=== PATIENT | female | born 1960 | race Caucasian/White ===

== ENCOUNTER → 2019-11-12 14:56 | Outpatient (CLI) | payer OTHER, SELFPAY ==
--- NOTE | ~2019-11-12 | MM_ITS ---
EXAMINATION: MM screening naeem BI w lakisha HISTORY: Screening mammogram TECHNIQUE: Craniocaudal and mediolateral oblique 3-D tomosynthesis images were obtained and synthetic 2-D images were generated. CAD analysis was submitted and interpreted. COMPARISON: 07/11/2018, 07/08/2016, 03/27/2014 bilateral digital screening mammogram examinations BREAST PARENCHYMAL COMPOSITION: There are scattered areas of fibroglandular density. FINDINGS: Asymmetric approximately 3 mm mass situated posteriorly in the lower mid right breast; diag nostic right mammogram is recommended, with targeted ultrasound. Otherwise there is no evidence of suspicious mass, calcification, or architectural distortion to sug gest malignancy in either breast. There has been no other suspicious interval change. IMPRESSION: 1. 3 mm posterior lower mid right breast mass 2. Diagnostic right mammogram and targeted right breast ultrasound examination are recommended. BI-RADS Category 0: Incomplete: Needs additional imaging evaluation. Reviewed, dictated and finalized at location A.
== END ==
PROVIDERS: PCP Family Medicine; Visit Provider Physician Assistant
DX: Z12.31 Encounter for screening mammogram for malignant neoplasm of breast (principal); R92.8 Other abnormal and inconclusive findings on diagnostic imaging of breast
CPT/HCPCS: 77063; 77067

== ENCOUNTER → 2019-12-04 14:17 | Outpatient (CLI) | payer OTHER, SELFPAY ==
--- NOTE | ~2019-12-04 | MMUS_ITS ---
EXAMINATION: MM diagnostic mammo unilat RT, US breast RT limited HISTORY: Right breast asymmetry on screening mammogram TECHNIQUE: Additional 3-D tomosynthesis images of the right breast were performed and synthetic 2-D i mages were generated. CAD analysis was submitted and interpreted. High resolution limited right breas t ultrasound was performed. COMPARISON: 11/22/2019, 07/11/2018 FINDINGS: MAMMOGRAPHIC FINDINGS: There is a persistent asymmetry in the posterior third of the breast on the craniocaudal view which h as an appearance similar to prior mammograms with spot compression, consistent with a benign finding. No suspicious interval change is identified. ULTRASOUND: There is no evidence of focal abnormal solid or cystic lesion in the vicinity of the mammographic fin ding in question. IMPRESSION: 1. No mammographic evidence of malignancy. 2. Recommend routine screening mammography in one year. BI-RADS Category 2: Benign finding(s). Reviewed, dictated and finalized at location A. IMPRESSION: 1. No mammographic evidence of malignancy. 2. Recommend routine screening mammography in one year. BI-RADS Category 2: Benign finding(s).
== END ==
PROVIDERS: Visit Provider Physician Assistant
DX: R92.8 Other abnormal and inconclusive findings on diagnostic imaging of breast (principal)
CPT/HCPCS: 76642; 77065

== ENCOUNTER → 2020-10-31 00:36 | Outpatient (CLI) | payer OTHER, SELFPAY ==
[2020-10-31 17:47] LABS: SARS-CoV-2 RNA PCR Negative
== END ==
PROVIDERS: PCP Family Medicine; Visit Provider Internal Medicine Gastroenterology
DX: Z01.812 Encounter for preprocedural laboratory examination (principal); Z20.822 Contact with and (suspected) exposure to COVID-19
CPT/HCPCS: C9803; U0003; U0005

== ENCOUNTER 2020-11-03 01:25 | Day surgery (SDC) | payer OTHER, SELFPAY ==
[2020-10-17 10:45] VITALS: BMI 23.1
[2020-11-03 06:27] VITALS: BP 117/70; PULSE 64; RESP 20; TEMP 36.8; O2SAT 99
[2020-11-03] MEDS: LACTATED RINGERS 1,000 ML 150 ML IV CONT (06:38)
--- NOTE | 2020-11-03 07:08 | PM.HPGS ---
History of Present Illness History of Present Illness Consent: Risks, benefits, and alternatives have been discussed and questions answered. Patient agrees to proceed with procedure. Chief complaint: neoplasm screening Narrative: Roya Lorenzo is a 60 year old female Here for colon cancer screening [facility] Past Medical History Medical History History of vaginal delivery (~1981) History of vaginal delivery (~1983) History of vaginal delivery (~1987) History of vaginal delivery (~1992) History of vaginal delivery (~1994) Prolapse of vaginal wall Surgical History Surgical History H/O arthroscopy of shoulder H/O foot surgery H/O: hysterectomy History of appendectomy (~1994) Family History Family History Other Family history of gout Family history of mental disorder Hypertension Social History Social History Smoking packs per day: 0.5 Smoking cigarettes per day: 10.0 Years smoked: 40 Smoking pack-years: 20.00 Smoking status: Current every day smoker Tobacco type: cigarettes Second hand tobacco smoke exposure: Yes Smoking end date: 09/21/19 Alcohol intake: current Drinks per week: 7 Substance use: current Substance use type: does not use Living arrangements: with family Gender identity (if verbalized by the patient): Female Spiritual care concerns: No Meds Home Medications and Allergies Home Medications Medication Instructions Recorded Confirmed Type calcium carb,cit ER 600 mg 2 tablet PO DAILY 09/29/20 10/17/20 History calcium-vit D3 500 unit tablet,ext.release Allergies Allergy/AdvReac Type Severity Reaction Status Date / Time codeine Allergy Unknown Rash Verified 11/03/20 06:25 Penicillins Allergy Unknown Swelling Verified 11/03/20 06:25 Vital Signs Vital Signs - 24 hr 11/03/20 06:27 Temperature 36.8 C Pulse Rate 64 Respiratory Rate 20 Blood Pressure 117/70 Pulse Oximetry 99 Exam Resp: Auscultation: clear to auscultation bilaterally Cardio: Rate: regular rate Rhythm: regular rhythm GI: GI Palp: Yes Soft to palpation and No Tenderness to palpation present (GI) Assessment and Plan Assessment and plan (1) Colon cancer screening: Code(s): Z12.11 - Encounter for screening for malignant neoplasm of colon Status: Acute Assessment and Plan: Colonoscopy with possible biopsy or polypectomy or cautery or injection of substances.
--- NOTE | 2020-11-03 07:09 | WPDANESEPPF ---
Anes - Initial Pre Proc Eval Procedure: Operation Date: 11/03/20 07:30 Proposed Procedures p Screening Colonoscopy - Lenny Lee MD Date/Time: 11/03/20 07:09 Surgeon: Lenny Lee MD Pre Op Diagnosis: neoplasm screening Patient Data Age: 60 Gender: F Height: 5 ft 6 in Weight: 65.7 kg Last Vital Signs Temp 98.2 F 11/03/20 06:27 Pulse 64 11/03/20 06:27 Resp 20 11/03/20 06:27 BP 117/70 11/03/20 06:27 Pulse Ox 99 11/03/20 06:27 Allergies Allergy/AdvReac Type Severity Reaction Status Date / Time codeine Allergy Unknown Rash Verified 11/03/20 06:25 Penicillins Allergy Unknown Swelling Verified 11/03/20 06:25 Home Medications Medication Instructions Recorded Confirmed Type calcium carb,cit ER 600 mg 2 tablet PO DAILY 09/29/20 10/17/20 History calcium-vit D3 500 unit tablet,ext.release Patient hx anesthesia problems: none Family hx anesthesia problems: none PMFSH Past Medical History Medical History History of vaginal delivery (~1981) History of vaginal delivery (~1983) History of vaginal delivery (~1987) History of vaginal delivery (~1992) History of vaginal delivery (~1994) Prolapse of vaginal wall Surgical History Surgical History H/O arthroscopy of shoulder H/O foot surgery H/O: hysterectomy History of appendectomy (~1994) Family History Family History Other Family history of gout Family history of mental disorder Hypertension Social History Social History Smoking packs per day: 0.5 Smoking cigarettes per day: 10.0 Years smoked: 40 Smoking pack-years: 20.00 Smoking status: Current every day smoker Tobacco type: cigarettes Second hand tobacco smoke exposure: Yes Smoking end date: 09/21/19 Alcohol intake: current Drinks per week: 7 Substance use: current Substance use type: does not use Living arrangements: with family Gender identity (if verbalized by the patient): Female Spiritual care concerns: No Anes - Eval Final PreProcedure Day of Procedure 11/03/20 07:09 Patient weight: normal Heart: regular rate and rhythm Lungs: clear to auscultation Airway: Mallampati scale class II Neurological: alert and oriented Last oral intake: >/= 8 hours ASA classification: II Emergent: no Anesthetic plan: proceed Anesthesia type and monitoring: general GIVS and standard monitoring Informed Consent: The patient's anesthetic plan and its attendant risks and benefits were discussed with the patient/family/POA. Questions were solicited and answers provided to the satisfaction of the patient/family/POA.
[2020-11-03 07:54] VITALS: BP 98/58; PULSE 58; RESP 20; O2SAT 98
[2020-11-03 08:14] VITALS: BP 102/67; PULSE 54; RESP 17; O2SAT 100
[2020-11-03 08:24] VITALS: BP 109/73; PULSE 59; RESP 19; O2SAT 99
== END 2020-11-03 08:35 | disposition home or self-care (01) ==
PROVIDERS: PCP Family Medicine; Visit Provider Internal Medicine Gastroenterology
PROC: 0DJD8ZZ Inspection of Lower Intestinal Tract, Via Natural or Artificial Opening Endoscopic (ICD-10-PCS; CPT 45378; principal; 2020-11-03 07:30)
DX: Z12.11 Encounter for screening for malignant neoplasm of colon (principal); K57.30 Diverticulosis of large intestine without perforation or abscess without bleeding; K62.1 Rectal polyp; K64.8 Other hemorrhoids; Z87.891 Personal history of nicotine dependence
CPT/HCPCS: 45380; 88305; C9803; J2001; J2704; J7120; U0003; U0005

== ENCOUNTER → 2021-10-24 09:43 | Outpatient (CLI) | payer OTHER, SELFPAY ==
--- NOTE | ~2021-10-24 | MM_ITS ---
EXAMINATION: MM screening naeem BI w lakisha HISTORY: Screening mammogram TECHNIQUE: Craniocaudal and mediolateral oblique 3-D tomosynthesis images were obtained and synthetic 2-D images were generated. CAD analysis was submitted and interpreted. COMPARISON: 12/04/2019 diagnostic right mammogram and limited right breast ultrasound 11/12/2019, 07/11/2018 bilateral screening mammogram examinations BREAST PARENCHYMAL COMPOSITION: There are scattered areas of fibroglandular density. FINDINGS: There is no evidence of suspicious mass, calcification, or architectural distortion to sugg est malignancy in either breast. There has been no suspicious interval change. IMPRESSION: 1. No mammographic evidence of malignancy. 2. Recommend routine screening mammography in one year. BI-RADS Category 1: Negative Reviewed, dictated and finalized at location A. [employer] SALES CONSULTANT
--- NOTE | ~2021-10-24 | DEXA_ITS ---
Bone Density Report Name: BENJI CHOWDARY Age: 61 Sex: Female Ethnicity: White Date of : 1960 Indication: osteopenia; hysterectomy; postmenopausal Referring Provider: Shante, Whit Jordan Study: Bone densitometry was performed. Exam Date: October 24, 2021 Accession number: [id number] Bone Density: Region BMD T-score Z-score Classification AP Spine (L1-L4) 0.917 -1.2 0.4 Osteopenia Femoral Neck (Left) 0.553 -2.7 -1.3 Osteoporosis Total Hip (Left) 0.721 -1.8 -0.7 Osteopenia Femoral Neck (Right) 0.546 -2.7 -1.4 Osteoporosis Total Hip (Right) 0.756 -1.5 -0.5 Osteopenia Total Hip Mean 0.739 -1.7 -0.6 Osteopenia World Health Organization criteria for BMD impression classify patients as: Normal (T-score at or above -1.0), Osteopenia (T-score between -1.0 and -2.5), or Osteoporosis (T-score at or below -2.5). 10-year Fracture Risk: FRAX not reported because: Some T-score for Spine Total or Hip Total or Femoral Neck at or below -2.5 Previous Exams: Region Exam Age BMD T-score BMD Change BMD Change Date g/cm2 vs Baseline vs Previous AP Spine(L1-L4) 10/24/2021 61 0.917 -1.2 -0.162* -0.046* 07/11/2018 57 0.964 -0.8 -0.116* -0.018 07/08/2016 55 0.982 -0.6 -0.098* -0.098* 03/25/2010 49 1.079 0.3 Total Hip(Left) 10/24/2021 61 0.721 -1.8 -0.140* -0.080* 07/11/2018 57 0.801 -1.2 -0.060* -0.022 07/08/2016 55 0.823 -1.0 -0.038* 0.003 03/27/2014 53 0.820 -1.0 -0.041* -0.041* 03/25/2010 49 0.861 -0.7 Total Hip(Right) 10/24/2021 61 0.756 -1.5 -0.014 0.055* 07/11/2018 57 0.701 -2.0 -0.070* -0.006 07/08/2016 55 0.707 -1.9 -0.064* -0.062* 03/27/2014 53 0.769 -1.4 -0.001 -0.001 03/25/2010 49 0.771 -1.4 *Denotes significance at 95% confidence level, LSC for AP Spine = 0.022 g/cm2, LSC for Total Hip = 0.027 g/cm2 Clinical Information Provided by Patient: Smokes Has used the following medications: Calcium Has the following medical conditions: Hysterectomy Patient maximum height was 66 Menopause Age: 49 Drinks caffeinated beverages Onset of menses at age 12 Number of children 5 Impression: The patient has osteoporosis, based on the Left Femoral Neck T-score. The patient has risk factors, including: smoking. The
== END ==
PROVIDERS: PCP Family Medicine; Visit Provider Nurse Practitioner Obstetrics & Gynecology
DX: Z12.31 Encounter for screening mammogram for malignant neoplasm of breast (principal); Z78.0 Asymptomatic menopausal state; M85.89 Other specified disorders of bone density and structure, multiple sites; M81.0 Age-related osteoporosis without current pathological fracture
CPT/HCPCS: 77063; 77067; 77080

== ENCOUNTER 2021-10-27 13:07 | Outpatient (CLI) | payer OTHER, SELFPAY ==
--- NOTE | ~2021-10-27 | XR_ITS ---
XR sacroiliac joints min 3V 10/27/2021 13:35 Indication: Lifting injury. Sacral coccygeal disorder. Procedure: 4 views of the sacroiliac joints Comparison: No prior studies for comparison. Findings: Sacroiliac joints are symmetric without significant degenerative change, erosion or ankylos is. Sacral foramen are symmetric. No fracture or traumatic malalignment. Mild degenerative changes of the hips and lower lumbar spine. Impression: 1: No acute abnormality of the sacroiliac joints. Reviewed, dictated and finalized at location B. S AND MARKETING COORDINATOR Impression: 1: No acute abnormality of the sacroiliac joints.
--- NOTE | ~2021-10-27 | XR_ITS ---
EXAMINATION: XR abdomen obstructive series DATE: 10/27/2021 13:34 INDICATION: Unspecified abdominal pain TECHNIQUE: Upright and supine views of the abdomen were obtained. COMPARISON: None. FINDINGS: There is no free intraperitoneal gas or evidence of bowel obstruction. The bowel gas patter n is nonspecific. Phleboliths are noted in the pelvis. There is mild osteoarthritis of the hips. The visualized lung bases are clear. IMPRESSION: 1. Nonobstructive bowel gas pattern. Reviewed, dictated and finalized at location F. OTIONS INTERN
== END 2021-10-27 13:08 | disposition home or self-care (01) ==
LOC: ANHIMG 13:12
PROVIDERS: PCP Family Medicine; Visit Provider Family Medicine
DX: M53.3 Sacrococcygeal disorders, not elsewhere classified (principal); R10.9 Unspecified abdominal pain; M16.0 Bilateral primary osteoarthritis of hip
CPT/HCPCS: 72202; 74019

== ENCOUNTER 2022-07-12 15:25 | Day surgery (SDC) | payer OTHER, SELFPAY ==
[2022-07-12] VITALS (7 sets, daily range): BP systolic 116–133; BP diastolic 64–87; PULSE 59–88; RESP 16–18; TEMP 36.6–36.8; O2SAT 99–100; BMI 25.6
--- NOTE | 2022-07-12 15:54 | WPDHPUPDATE1 ---
History and Physical Update Update Date/Time: 07/12/22 15:54 History and Physical has been reviewed, including an updated exam of the patient. There are NO changes in the patient's condition. Risks, benefits, and alternatives have been discussed and questions answered. Patient agrees to proceed with procedure.
--- NOTE | 2022-07-12 15:56 | WPDANESEPPF ---
Anes - Initial Pre Proc Eval Procedure: Operation Date: 07/12/22 16:00 Proposed Procedures p Debridement or Excision Infected Right Axillary Cyst - Ruy Sorenson MD Date/Time: 07/12/22 15:56 Surgeon: Ruy Sorenson MD Pre Op Diagnosis: infected Right axillary cyst Patient Data Age: 61 Gender: F Height: 1.63 m Weight: 67.8 kg Allergies Allergy/AdvReac Type Severity Reaction Status Date / Time codeine Allergy Unknown Rash Verified 07/12/22 15:45 Penicillins Allergy Unknown Swelling Verified 07/12/22 15:45 Home Medications Medication Instructions Recorded Confirmed Type calcium carb,cit ER 600 mg-vit D3 2 tablet PO DAILY 09/29/20 07/09/22 History 12.5 mcg (500 unit) tablet,ext.rel doxycycline hyclate 100 mg capsule 100 mg PO DAILY 07/12/22 History Patient hx anesthesia problems: none Family hx anesthesia problems: none Results Review: All pre-operative results and documents have been reviewed as part of the pre-operative evaluation. [facility] Past Medical History Medical History History of vaginal delivery (~1981) History of vaginal delivery (~1983) History of vaginal delivery (~1987) History of vaginal delivery (~1992) History of vaginal delivery (~1994) Prolapse of vaginal wall Smoker Surgical History Surgical History H/O arthroscopy of shoulder H/O foot surgery H/O: hysterectomy History of appendectomy (~1994) Family History Family History Other Family history of gout Family history of mental disorder Hypertension Social History Social History Smoking packs per day: 0.5 Smoking cigarettes per day: 10.0 Years smoked: 40 Smoking pack-years: 20.00 Smoking status: Smoker, status unknown Tobacco type: cigarettes Second hand tobacco smoke exposure: Yes Alcohol intake: current Drinks per week: 7 Alcohol use details: drinks wine and beer daily Substance use: current Substance use type: marijuana Other substance usage details: smokes marijuana & consumes edibles 2-3 times/week Has the Lack of Transportation Kept You From Medical Appointments or From Getting Medications?: No Within the Past 12 Months, Were You Worried Whether Your Food Would Run Out Before You Got Money to Buy More?: Never True What is Your Housing Situation Today?: I Have Housing Are You Worried That in the Next 2 Months, You May Not Have Your Own Housing to Live In?: No Do You Have Trouble Paying Your Heating Or Electricity Bill?: No Do You Have Trouble Paying For Medicines?: No Are You Currently Unemployed and Looking for Work?: No Highest Level of Education Completed: Trade/Vocational Certificate Do You Have Trouble With Childcare or the Care of a Family Member?: No Gender identity (if verbalized by the patient): Female Spiritual care concerns: No Anes - Eval Final PreProcedure Day of Procedure 07/12/22 15:56 Patient weight: normal Heart: regular rate and rhythm Lungs: clear to auscultation Airway: Mallampati scale class II Neurological: alert and oriented Last oral intake: 4 hours Emergent: yes Anesthetic plan: proceed Anesthesia type and monitoring: general ETT and standard monitoring Results Review: All pre-operative results and documents have been reviewed as part of the pre-operative evaluation. Informed Consent: The patient's anesthetic plan and its attendant risks and benefits were discussed with the patient/family/POA. Questions were solicited and answers provided to the satisfaction of the patient/family/POA.
[2022-07-12] MEDS: LACTATED RINGERS 1,000 ML 30 ML IV CONT (15:59)
[2022-07-12] MEDS: ceFAZolin 2 GM/D5W 50 ML 2 GM/50 ML BAG IVPB (16:05)
[2022-07-12] MEDS: BUPIVACAINE/EPINEPHRINE 0.25% 50 ML VIAL INFILTRATE (16:28)
--- NOTE | 2022-07-12 16:48 | W.PM.PROC2 ---
Procedure Note - Detailed Date of Procedure 07/12/22 Pre-op Diagnosis Right axillary cyst abscess Post-op Diagnosis Same Procedure Performed Incision and drainage right axillary cyst abscess complex Surgeon Ruy Sorenson MD [employer] Installer Junior VIEYRA Anesthesia General and Local (0.25% Marcaine with epinephrine) Indications Patient had an infection and abscess in her right axilla 15 or 16 years ago. After incision and drainage she has always had a small nodule in that location. Recently, within the last week, this started to swell reddened and become very painful. She started on antibiotics but this did not provide much relief. She was seen in the office today and found to have an abscessed skin cyst of the right axilla. She is taken to surgery now for incision and drainage versus excision. Findings Most of the cyst was an abscess. I drained the abscess and removed as much of the cyst as possible. Description of Procedure The patient was taken to surgery and induced into general anesthesia. The right axilla was prepped and draped. An incision down the length of the abscess was made. Some purulent fluid and some subcutaneous pockets of purulence were noted. I excised the subcutaneous pockets and some of the overlying skin. A removed all the infected material that I could find. Cautery was used for hemostasis. I then dressed the wound with Xeroform gauze, fluffs, and Medipore tape. Estimated Blood Loss -5.0 Drains No Packing No Pathology None sent Complications No immediate complications Condition Stable Disposition PACU [facility] Billing Surgery - Charge Forward: Surgery Billing (Complex incision and drainage of right axillary abscess)
== END 2022-07-12 18:02 | disposition home or self-care (01) ==
PROVIDERS: PCP Family Medicine; Visit Provider Surgery
PROC: (CPT 10060; principal; 2022-07-12 16:00)
DX: L02.818 Cutaneous abscess of other sites (principal); L72.9 Follicular cyst of the skin and subcutaneous tissue, unspecified; F17.210 Nicotine dependence, cigarettes, uncomplicated
CPT/HCPCS: 10060; J0330; J0690; J1100; J2250; J2405; J2704; J3010; J7120

== ENCOUNTER 2023-01-22 17:20 | Emergency (ER) | payer OTHER, SELFPAY ==
[2023-01-22 17:35] VITALS: BP 106/65; PULSE 65; RESP 12; TEMP 36.2; O2SAT 100
--- NOTE | 2023-01-22 18:06 | ED.SKABFB ---
HPI - Skin/Abscess/Foreign Bdy General Chief complaint: Skin/Abscess/Foreign Body Stated complaint: insect bite; right forearm swelling and itching Time Seen by Provider: 01/22/23 18:06 Source: patient Mode of arrival: ambulatory Limitations: no limitations History of Present Illness HPI narrative: 62-year-old female presents with complaint of pain, swelling and redness to right forearm. States yesterday while taking off pool cover she thinks that she was stung by something. She states that right forearm feels warm to touch. She has not taking any [id number] medications to treat her pain. she did not take any Benadryl after insect sting. All systems reviewed and negative except as noted above. Related Data Allergies Allergy/AdvReac Type Severity Reaction Status Date / Time codeine Allergy Unknown Rash Verified 01/22/23 17:48 Penicillins Allergy Unknown Swelling Verified 01/22/23 17:48 Review of Systems Review of Systems: CONSTITUTIONAL: Denies fever, chills, or sweats. EYES: Denies visual changes, redness, or discharge. ENT: Denies rhinorrhea, congestion, sore throat, or otalgia. CARDIOVASCULAR: Denies chest pain, palpitations, or edema. RESPIRATORY: Denies cough or dyspnea. GASTROINTESTINAL: Denies abdominal pain, nausea, vomiting, or diarrhea. GENITOURINARY: Denies dysuria or hematuria. SKIN: Denies rash or itching. Reports swelling, redness and warmth to lateral aspect right forearm. MUSCULOSKELETAL: Denies back pain, joint pain, or myalgia. NEUROLOGIC: Denies headache, numbness, or weakness. PSYCHIATRIC: Denies anxiety or depression. All other systems reviewed are negative, except as documented in HPI. [facility] Past Medical History Medical History (Updated 01/22/23 @ 18:14 by Sonia Rubi NP) Foraminal stenosis of lumbar region History of vaginal delivery (~1981) History of vaginal delivery (~1983) History of vaginal delivery (~1987) History of vaginal delivery (~1992) History of vaginal delivery (~1994) Prolapse of vaginal wall Smoker Spinal stenosis of lumbar region Surgical History Surgical History H/O arthroscopy of shoulder H/O foot surgery H/O: hysterectomy History of appendectomy (~1994) Hx of excision of epidermal inclusion cyst debridement or exc infected R axillary cyst 07/12/22 Family History Family History Other Family history of gout Family history of mental disorder Hypertension Social History Social History Smoking packs per day: 0.5 Smoking cigarettes per day: 10.0 Years smoked: 40 Smoking pack-years: 20.00 Smoking status: Smoker, status unknown Tobacco type: cigarettes Second hand tobacco smoke exposure: Yes Alcohol intake: current Drinks per week: 7 Alcohol use details: drinks wine and beer daily Substance use: current Substance use type: marijuana Other substance usage details: smokes marijuana & consumes edibles 2-3 times/week Lack of Transportation: No Lack of Food: Never True Current Housing: I Have Housing Concerned About Future Housing: No Difficulty Paying Gas/Electric Bills: No Difficulty Paying for Meds: No Currently Unemployed: No Education: Trade/Vocational Certificate Difficulty w/ Childcare or Family Care: No Living arrangements: with family Occupation/Education: occupation Gender identity (if verbalized by the patient): Female Spiritual care concerns: No Comments At time of signature, agree with nursing past medical, surgical, social and family history. There is no relevant family history pertinent to the presenting complaint. Exam Narrative: GENERAL: This is a well-nourished, well-developed patient, in no apparent distress. HEAD: normocephalic, atraumatic. EYES: PERRL. Sclera clear/white. Vision is grossly i
== END 2023-01-22 18:16 | disposition home or self-care (01) ==
PROVIDERS: Emergency Provider Nurse Practitioner Family; PCP Family Medicine
DX: S50.861A Insect bite (nonvenomous) of right forearm, initial encounter (principal); W57.XXXA Bitten or stung by nonvenomous insect and other nonvenomous arthropods, initial encounter; F17.210 Nicotine dependence, cigarettes, uncomplicated; F12.90 Cannabis use, unspecified, uncomplicated; M48.061 Spinal stenosis, lumbar region without neurogenic claudication
CPT/HCPCS: 99213; G0463

== ENCOUNTER → 2023-03-15 11:22 | Outpatient (CLI) | payer OTHER, SELFPAY ==
--- NOTE | ~2023-03-15 | MM_ITS ---
EXAMINATION: MM screening naeem BI w lakisha HISTORY: Screening mammogram TECHNIQUE: Craniocaudal and mediolateral oblique 3-D tomosynthesis images were obtained and synthetic 2-D images were generated. CAD analysis was submitted and interpreted. COMPARISON: October 24, 2021 bilateral screening mammogram December 04, 2019 diagnostic right mammogram and limited right breast ultrasound November 12, 2019 bilateral screening mammogram BREAST PARENCHYMAL COMPOSITION: There are scattered areas of fibroglandular density. FINDINGS: There is no evidence of suspicious mass, calcification, or architectural distortion to sugg est malignancy in either breast. There has been no suspicious interval change. IMPRESSION: 1. No mammographic evidence of malignancy. 2. Recommend routine screening mammography in one year. BI-RADS Category 1: Negative Reviewed, dictated and finalized at location A.
== END ==
PROVIDERS: PCP Family Medicine; Visit Provider Nurse Practitioner Obstetrics & Gynecology
DX: Z12.31 Encounter for screening mammogram for malignant neoplasm of breast (principal)
CPT/HCPCS: 77063; 77067

== ENCOUNTER 2024-03-27 12:37 | Outpatient (CLI) | payer OTHER, SELFPAY ==
--- NOTE | ~2024-03-27 | DEXA_ITS ---
Bone Density Report Name: BENJI CHOWDARY Age: 63 Sex: Female Ethnicity: White Date of : 1960 Indication: postmenopausal; screening for osteoporosis; height loss; hysterectomy; Referring Provider: Shante, Whit Jordan Study: Bone densitometry was performed. Exam Date: March 27, 2024 Accession number: [id number] Bone Density: Region BMD T-score Z-score Classification AP Spine(L1, L2, L3) 0.883 -1.2 0.5 Osteopenia Femoral Neck (Left) 0.583 -2.4 -0.9 Osteopenia Total Hip (Left) 0.693 -2.0 -0.8 Osteopenia Femoral Neck (Right) 0.582 -2.4 -0.9 Osteopenia Total Hip (Right) 0.673 -2.2 -1.0 Osteopenia Femoral Neck Mean 0.583 -2.4 -0.9 Osteopenia Total Hip Mean 0.683 -2.1 -0.9 Osteopenia World Health Organization criteria for BMD impression classify patients as: Normal (T-score at or above -1.0), Osteopenia (T-score between -1.0 and -2.5), or Osteoporosis (T-score at or below -2.5). 10-year Fracture Risk(1): Major Osteoporotic Fracture 13% Hip Fracture 3.8% Reported Risk Factors: [place] (), Neck BMD=0.582, BMI=24.0, smoking (1) FRAX(R) Version 3.08. Fracture probability calculated for an untreated patient. Fracture probability may be lower if the patient has received treatment. Clinical Information Provided by Patient: Smokes Has the following medical conditions: Hysterectomy Patient maximum height was 66 Menopause Age: 49 No regular weight bearing exercise Drinks caffeinated beverages Onset of menses at age 12 Number of children 5 Impression: The patient has low bone mass, based on the Left Femoral Neck T-score. The patient has risk factors, including: smoking. Discussion: BONE DENSITY IS LOW AT ONE OR MORE SKELETAL SITES. This patient's lowest T-score is low at one or more skeletal sites. It meets the World Health Organization's (WHO) criteria for ?low bone mass? (T-score between -1.0 and -2.5). The patient's 10-year risk of fracture as calculated by FRAX is less than the threshold where pharmacological therapy is recommended by the National Osteoporosis Foundation (NOF). However, all treatment decisions require clinical judgment and consideration of individual patient factors, including patient preferences, comorbidities, previous drug use, risk factors not captured in the FRAX model (e.g., frailty, falls, vitamin D deficiency, increased bone turnover, interval significant decline in bone density) and possible under or overestimation of fracture risk by FRAX. The patient should follow a healthful lifestyle (good nutrition with adequate calcium and vitamin D, and appropriate weight-bearing exercise). Follow-Up: Consider repeating this study in 2 to 3 years to reassess this patient's status, or sooner if there is some new clinical indication. Reported by: Dr. Sander Sheikh on 03/27/2024 1:14:00 PM.
--- NOTE | ~2024-03-27 | MM_ITS ---
EXAMINATION: MM screening naeem BI w lakisha HISTORY: Screening TECHNIQUE: Craniocaudal and mediolateral oblique 3-D tomosynthesis images were obtained and synthetic 2-D images were generated. CAD analysis was submitted and interpreted. COMPARISON: Comparison to multiple prior studies sequentially, with oldest reviewed study dated 11/2015. BREAST PARENCHYMAL COMPOSITION: Not dense: There are scattered areas of fibroglandular density. FINDINGS: There is no evidence of suspicious mass, calcification, or architectural distortion to sugg est malignancy in either breast. There has been no suspicious interval change. IMPRESSION: 1. No mammographic evidence of malignancy. 2. Recommend routine screening mammography in one year. BI-RADS Category 1: Negative Reviewed, dictated and finalized at location B.
== END 2024-03-27 12:38 | disposition home or self-care (01) ==
PROVIDERS: PCP Family Medicine; Visit Provider Nurse Practitioner Obstetrics & Gynecology
DX: Z12.31 Encounter for screening mammogram for malignant neoplasm of breast (principal); Z78.0 Asymptomatic menopausal state; M85.89 Other specified disorders of bone density and structure, multiple sites
CPT/HCPCS: 77063; 77067; 77080

== ENCOUNTER 2024-06-18 09:37 | Outpatient (CLI) | payer OTHER, SELFPAY ==
--- NOTE | ~2024-06-18 | CT_ITS ---
CT Scan of the Chest without Contrast: Clinical Indication: Lung cancer screening, nicotine dependence Technique: Contiguous sections were acquired throughout the chest without intravenous contrast. Dose reduction technique was used on this scan by utilizing automated exposure control and iterative recon struction technique. The dose-length product (DLP) was 63.54 mGy-cm. Findings: There is no evidence of any significant mediastinal, hilar or axillary lymphadenopathy. Coronary maribel ry calcifications are present. There is no evidence of pleural or pericardial effusion. The lungs are clear. No pulmonary nodules or infiltrates are noted. Images through the upper abdomen reveal no abnormalities. Impression: Lung RADS 1: Negative. 12 month follow-up screening CT advised. Reviewed, dictated and finalized at location . Impression: Lung RADS 1: Negative. 12 month follow-up screening CT advised.
== END 2024-06-18 09:38 | disposition home or self-care (01) ==
LOC: MICIMG 09:38
PROVIDERS: PCP Family Medicine; Visit Provider Student in an Organized Health Care Education/Training Program
DX: Z12.2 Encounter for screening for malignant neoplasm of respiratory organs (principal); Z87.891 Personal history of nicotine dependence
CPT/HCPCS: 71271

== ENCOUNTER 2025-04-01 08:46 | Outpatient (CLI) | payer MEDICARE, SELFPAY ==
--- NOTE | ~2025-04-01 | XR_ITS ---
EXAM: XR shoulder RT min 2V DATE: 04/01/2025 09:11 HISTORY: NON TRAUMA R SHOULD PAIN/HX OF SURGERY . COMPARISON: None available. FINDINGS: Decreased mineralization. No fracture or dislocation. No lytic or blastic lesion. Mild AC joint and moderate glenohumeral joint degenerative change. Subacromial narrowing. Inferior enthesopat hy at the acromion, likely indicating a component of osseous outlet compromise. Soft tissue anchors i n the humeral head. No erosion or periosteal change. Soft tissues within normal limits. IMPRESSION: Osteopenia. Subacromial narrowing as can be seen with rotator cuff pathology. Mild AC charissa nt and moderate glenohumeral joint osteoarthritis. Surgical changes, likely of prior rotator cuff rep air. Reviewed, dictated and finalized at location K. IMPRESSION: Osteopenia. Subacromial narrowing as can be seen with rotator cuff pathology. Mild AC joint and moderate glenohumeral joint osteoarthritis. Surgic al changes, likely of prior rotator cuff repair.
--- OUTSIDE RECORDS SUMMARY | 2025-04-01 08:55 | XMS_ITS | Patient Health Record ---
Author Organization [facility] Address [address] [place], [place] [id number] Care Team Providers Care Anesthesiologist Attending Name Role Phone JABARI Vanegas Unavailable Charu Macias Unavailable Unavailable Reason For Referral No Information Plan Of Treatment No Information Insurance Providers Payer Name Payer Address Payer Phone Subscriber Number Group Number Insured Name Patient Relationship to Insured Coverage Start Date Coverage End Date CIGNA [address] [place]IV[place] GARC[place], [place] [phone] [id number] BENJI CHOWDARY Self - patient is the insured
--- OUTSIDE RECORDS SUMMARY | 2025-04-01 08:55 | XMS_ITS | Clinical Summary ---
Author Organization [facility] Address [address] [place] [address] Care Team Providers Care Bowling Floor Manager Name Role Phone Belen Goldberg NURSING HOME ASSISTANT ADMINISTRATOR Primary Care Provider Unavail able Allergies Active Allergy Reactions Criticality Noted Date Comments Codeine Rash Low 10/16/2021 Penicillins Rash Low 10/16/2021 Medications chlorzoxazone 500 MG Tab Take 1 tablet (500 mg total) by mouth 3 (three) times daily as needed (Pain and/or muscle spasm). 30 tablet 10/17/2021 Active diclofenac EC 75 MG tablet Take 1 tablet (75 mg total) by mouth 2 (two) times daily as needed (Pain. Please take with meals). 30 tablet 10/17/2021 Active Immunizations Immunization Administration Dates Next Due PFIZER COVID-19 (ORIGINAL FO RMULATION, PURPLE CAP) mRNA, LNP-S, PF, 30 MCG/0.3 ML DOSE 11/15/2020,10/25/2020 Social History Tobacco Use Types Packs/Day Years Used Date Smoking Tobacco: Every Day Cigarettes Smokeless Tobacco: Never Alcohol Use Standard Drinks/Week Comments Yes 8 (1 standard drink = 0.6 oz pur e alcohol) Comments No Sex and Gender Information Value Date Recorded Sex Assigned at Not on file Legal Sex Female 1:11 PM CAR MECHANIC Gender Identity Not on file Sexual Orientation Not on file Last Filed Vital Signs Vital Sign Reading Time Taken Comments Blood Pressure 131/81 10/17/2021 1:45 AM CAR MECHANIC Pulse 60 10/16/2021 9:15 PM CAR MECHANIC Temperature 36.7 C (98 F) 10/17/2021 1:45 AM CAR MECHANIC Respiratory Rate 18 10/17/2021 1:45 AM CAR MECHANIC Oxygen Saturation 97% 10/17/2021 1:45 AM CAR MECHANIC Inhaled Oxygen Concentration - - Weight 67 kg (147 lb 11.3 oz) 10/16/2021 5:39 PM CAR MECHANIC Height 162.6 cm (5' 4) 10/16/2021 5:39 PM CAR MECHANIC Body Mass Index 25.35 10/16/2021 5:39 PM CAR MECHANIC Plan of Treatment Health Maintenance Due Date Last Done Comments Colorectal Cancer Screening Colonoscopy (10 Years) 1960 Hepatitis C 1977 DTaP, Tdap and Td Vaccines ( 1 - Tdap) 1978 Pneumococcal Vaccine: 50+ Years (1 of 2 - PCV) 1978 Mammogram Screening 1999 Zoster Vaccines (1 of 2) 2009 COVID-19 Vaccine (3 - 2023-2 5 season) 2024 11/15/2020, 10/25/2020 Dexa Scan (General) 2024 RSV Immunization or 60+ Years (1 - 1-dose 75+ series) 2034 Meningococcal B Vaccine Aged Out No l onger eligible based on patient's age to complete this topic Meningococcal Vaccine Aged Out No daxa kaleb eligible based on patient's age to complete this topic RSV Immunizations Under 20 Months Aged Out No longer eligible b ased on patient's age to complete this topic Insurance [facility] [employer] [facility] Care Teams Bowling Floor Manager Relationship Specialty Start Date End Date Belen Goldberg NP PCP - General HR GENERALIST 10/16/21
== END 2025-04-01 08:47 | disposition home or self-care (01) ==
PROVIDERS: PCP Family Medicine; Visit Provider Student in an Organized Health Care Education/Training Program
DX: M85.821 Other specified disorders of bone density and structure, right upper arm (principal); M75.41 Impingement syndrome of right shoulder; M19.011 Primary osteoarthritis, right shoulder; Z98.890 Other specified postprocedural states
CPT/HCPCS: 73030

== ENCOUNTER 2025-04-06 09:26 | Outpatient (CLI) | payer MEDICARE, SELFPAY ==
--- NOTE | ~2025-04-06 | US_ITS ---
Limited Abdominal Sonogram: Real-time sonographic imaging of the right upper quadrant was performed. Clinical History: Gallstone Findings: The liver appears normal with no evidence of mass lesion or bile duct dilatation. Main por ko vein demonstrates normal direction of flow. The gallbladder is well distended, and is filled with shadowing stones. The common bile duct measures 5 mm. The visualized pancreas, aorta, and IVC are u nremarkable. Right kidney unremarkable. Impression: Cholelithiasis. Reviewed, dictated and finalized at location M. Impression: Cholelithiasis.
--- OUTSIDE RECORDS SUMMARY | 2025-04-06 09:30 | XMS_ITS | Patient Health Record ---
Author Organization [facility] Address [address] [place], [place] [id number] Care Team Providers Care Jet Man Name Role Phone JABARI Vanegas Unavailable Charu Macias Unavailable Unavailable Reason For Referral No Information Plan Of Treatment No Information Insurance Providers Payer Name Payer Address Payer Phone Subscriber Number Group Number Insured Name Patient Relationship to Insured Coverage Start Date Coverage End Date CIGNA [address] [place], [place] [phone] [id number] BENJI CHOWDARY Self - patient is the insured
== END 2025-04-06 09:27 | disposition home or self-care (01) ==
PROVIDERS: PCP Family Medicine; Visit Provider Student in an Organized Health Care Education/Training Program
DX: K80.20 Calculus of gallbladder without cholecystitis without obstruction (principal)
CPT/HCPCS: 76705

== ENCOUNTER 2025-05-23 12:31 | Outpatient (CLI) | payer MEDICARE, SELFPAY ==
--- NOTE | ~2025-05-23 | MM_ITS ---
EXAMINATION: MM screening naeem BI w lakisha HISTORY: Screening TECHNIQUE: Craniocaudal and mediolateral oblique 3-D tomosynthesis images were obtained and synthetic 2-D images were generated. CAD analysis was submitted and interpreted. COMPARISON: 03/27/2024 BREAST PARENCHYMAL COMPOSITION: Not Dense: The breasts are almost entirely fatty. FINDINGS: There is no evidence of suspicious mass, calcification, or architectural distortion to suggest malignancy in either breast. [There has been no significant interval change. IMPRESSION: 1. No mammographic evidence of malignancy. Recommend routine screening mammography in one year. BI-RADS Category 1: Negative Reviewed, dictated, and finalized at Location A. Reviewed, dictated and finalized at location Q. IMPRESSION: 1. No mammographic evidence of malignancy. Recommend routine screening mammogra phy in one year. BI-RADS Category 1: Negative
--- OUTSIDE RECORDS SUMMARY | 2025-05-23 12:34 | XMS_ITS | Clinical Summary ---
Author Organization [facility] Address [address] [place] [address] Care Team Providers Care Electric Meter Installer Name Role Phone Belen Goldberg DIRECTOR RECREATION Primary Care Provider Unavail able Allergies Active [...] on file Legal Sex Female 1:11 PM CABLE ENGINEER OUTSIDE PLANT Gender Identity Not on file Sexual Orientation Not on file Last Filed Vital Signs Vital Sign Reading Time Taken Comments Blood Pressure 131/81 10/17/2021 1:45 AM CABLE ENGINEER OUTSIDE PLANT Pulse 60 10/16/2021 9:15 PM CABLE ENGINEER OUTSIDE PLANT Temperature 36.7 C (98 F) 10/17/2021 1:45 AM CABLE ENGINEER OUTSIDE PLANT Respiratory Rate 18 10/17/2021 1:45 AM CABLE ENGINEER OUTSIDE PLANT Oxygen Saturation 97% 10/17/2021 1:45 AM CABLE ENGINEER OUTSIDE PLANT Inhaled Oxygen Concentration - - Weight 67 kg (147 lb 11.3 oz) 10/16/2021 5:39 PM CABLE ENGINEER OUTSIDE PLANT Height 162.6 cm (5' 4) 10/16/2021 5:39 PM CABLE ENGINEER OUTSIDE PLANT Body Mass Index 25.35 10/16/2021 5:39 PM CABLE ENGINEER OUTSIDE PLANT Plan of Treatment Health Maintenance Due Date Last Done Comments Colorectal Cancer Screening Colonoscopy (10 Years) 1960 Hepatitis C 1977 DTaP, Tdap and Td Vaccines ( 1 - Tdap) 1978 Pneumococcal Vaccine: 50+ Years (1 of 2 - PCV) 1978 Mammogram Screening 1999 Zoster Vaccines (1 of 2) 2009 Dexa Scan (General) 2024 COVID-19 Vaccine (3 - 2024-2 6 season) 2025 11/15/2020, 10/25/2020 RSV Immunization or 60+ Years (1 - [...] patient's age to complete this topic Insurance [facility] [employer] Care Teams Electric Meter Installer Relationship Specialty Start Date End Date Belen Goldberg NP PCP - General MANAGER STAFFING 10/16/21
--- OUTSIDE RECORDS SUMMARY | 2025-05-23 12:34 | XMS_ITS | Clinical Summary ---
Author Organization [facility] Address [address] [place] [address] Care Team Providers Care Antisqueak Worker Name Role Phone Charu Macias MD Primary Care Provider [phone] Source Comments [facility],non-owned Affiliates and Associated Physician Practices is amultiple site organization consisting of ambulatory clinics and hospital sitesin [place] and [place]. This disclosure is being madepursuant to the Care Everywhere program and may not contain all information available regarding this patient. Last updated 18.[facility] Allergies Active Allergy Reactions Criticality Noted Date Comments Codeine INSTRUCTIONAL WRITER Dysfunction 04/16/2025 Penicillins Rash Medium 04/16/2025 Medications * Be aware that medications may not be up to date on this document. Alwaysverify current medications with the patient. No known medications Encounters Date Type Department Care Team Description 04/16/2025 11:00 AM CDT Office Visit [facility] - Orthopedics [address] [place] [phone] Isaías Lan MD Rotator cuff tendinitis, right (Primary Dx) 04/16/2025 10:53 AM CDT - 04/16/2025 11:59 PM CDT Hospital Encounter [facility] [address] [place] [address] Isaías Lan MD Discharge Disposition: Home or Self Care 04/16/2025 Travel 04/15/2025 Orders Only [facility] [address] [place] [phone] Isaías Lan MD Right shoulder pain, unspecified chronicity 04/15/2025 Travel from Last 3 Months Social History Tobacco Use Types Packs/Day Years Used Date Smoking Tobacco: Former Cigarettes Q uit: 1979 Smokeless Tobacco: Never Tobacco Cessation:Counseling Given: Not Answered Comments Unknown Sex and Gender Information Value Date Recorded Sex Assigned at Not on file Legal Sex Female 4:53 PM CDT Gender Identity Not on file Sexual Orientation Not on file Plan of Treatment Health Maintenance Due Date Last Done Comments BONE DENSITY TESTING 1960 COLOGUARD (AGES 45-75) - COL ON CA SCREENING 1960 COLON MONITORING 1959 COLONOSCOPY - COLON CA SCREENING 1959 CT COLONOGRAPHY - COLON CA SCREENING 1960 Colorectal Cancer Screening 1960 FIT - COLON CA SCREENING 1959 FLEX SIG - COLON CA SCREENING 1960 LIPID TESTING 1960 MAMMOGRAM 1960 HIV SCREENING 1974 HEPATITIS C SCREENING 08/28/1977 DTAP/TDAP/TD VACCINES (1 - Tdap) 1978 PNEUMOCOCCAL VACCINE 50+ (1 of 1 - PCV) 2009 ZOSTER VACCINE (1 of 2) 2009 DEPRESSION SCREENING 09/05/2024 MEDICARE AWV CALENDAR YEAR 2024 COVID-19 VACCINE (3 - 2024-2 6 season) 2025 11/15/2020, 10/25/2020 INFLUENZA VACCINE (#1) 2025 PAP SMEAR 10/10/2027 10/10/2024, 10/10/2024 Respiratory Syncytial Virus (RSV) Vaccine Pt: or over 60 yrs (1 - 1-dose 75+ series) 2034 HEPATITIS B VACCINE Aged Out No longe r eligible based on patient's age to complete this topic HIB VACCINE Aged Out No longer eligi ble based on patient's age to complete this topic HPV VACCINE Aged Out No longer eligi ble based on patient's age to complete this topic MENINGOCOCCAL (Group B) VACCINE SHARED DECISION-MAKING Aged Out No longer eligible based on patient's age to complete this topic MENINGOCOCCAL GROUPS A/C/Y/W VACCINE Aged Out No longer eligible b ased on patient's age to complete this topic Procedures Procedure Name Priority Date/Time Associated Diagnosis Comments XR SHOULDER RIGHT 2VW OR MORE Routine 04/16/2025 11:10 AM CDT Right shoulder pain, unspecified chronicity from Last 3 Months Results * XR Shoulder Right 2Vw or More (04/16/2025 11:10 AM CDT) Anatomical Region Laterality Modality Upper Extremity Computed Radiogr aphy 04/16/2025 11:2 5 AM CDT Impressions 04/16/2025 11:47 AM CDT IMPRESSION: 1.Mild degenerative changes. The report was drafted by Danii Lakhani MD (residential interior designer) 04/16/2025 11:25 AM. > Dictated by Radio Television Announcer I, Gordo Diaz MD have personally reviewed and interpreted this examination/study. > Interpreting Provider: Gordo Diaz MD on 04/16/2025 11:47 AM Narrative 04/16/2025 11:47 AM CDT PROCEDURE: XR SHOULDER RIGHT 2VW OR MORE, DATE/TIME OF EXAM: 04/16/2025 11:10 AM, LOCATION [facility] INDICATION: M25.511: Right shoulder pain, unspecified chronicity ADDITIONAL CLINICAL INFORMATION: Ordering Provider Reason For Exam: fx COMPARISON: None. FINDINGS: There is no acute fracture or dislocation. There is mild degenerative change of the acromioclavicular and glenohumeral joints. There are 2 suture anchors in the humeral head likely related to rotator cuff surgery. Procedure Note Gordo Diaz MD - 04/16/2025 PROCEDURE: XR SHOULDER RIGHT 2VW OR MORE, DATE/TIME OF EXAM: 04/16/2025 11:10 AM, LOCATION [facility] INDICATION: M25.511: Right shoulder pain, unspecified chronicity ADDITIONAL CLINICAL INFORMATION: Ordering Provider Reason For Exam: fx COMPARISON: None. FINDINGS: There is no acute fracture or dislocation. There is mild degenerative change of the acromioclavicular and glenohumeral joints. There are 2suture anchors in the humeral head likely related to rotator cuff surgery. IMPRESSION: 1.Mild degenerative changes. The report was drafted by Danii Lakhani MD (residential interior designer) 04/16/2025 11:25 AM. > Dictated by Radio Television Announcer I, Gordo Diaz MD have personally reviewed and interpreted this examination/study. > Interpreting Provider: Gordo Diaz MD on 04/16/2025 11:47 AM Isaías Lan MD DIAGNOSTIC IMAGING ORDERABLES F inal Result from Last 3 Months Insurance [facility] UHC MANAGED MEDICARE ADV Care Teams Antisqueak Worker Relationship Specialty Start Date End Date Charu Macias MD [address] [place] [address] PCP - General 11/18/20
== END 2025-05-23 12:32 | disposition home or self-care (01) ==
PROVIDERS: PCP Family Medicine; Visit Provider Nurse Practitioner Obstetrics & Gynecology
DX: Z12.31 Encounter for screening mammogram for malignant neoplasm of breast (principal)
CPT/HCPCS: 77063; 77067

== ENCOUNTER 2025-06-27 15:18 | Outpatient (CLI) | payer MEDICARE, SELFPAY ==
--- NOTE | ~2025-06-27 | XR_ITS ---
[id number] Indication: M54.2 - Cervicalgia Comparison: None Findings: Grade 1 anterolisthesis of C4 on C5, no fracture. Moderate to severe loss of disc height C5-6 and C6-7. Soft tissues unremarkable Impression: No acute abnormality. Reviewed, dictated and finalized at location P. Impression: No acute abnormality.
--- NOTE | ~2025-06-27 | XR_ITS ---
EXAMINATION: XR shoulder LT min 2V, 06/27/2025 15:30 CDT HISTORY: M25.512 - Pain in left shoulder COMPARISON: No comparisons available. Findings: No acute fracture or malalignment. Moderate degenerative changes Soft tissues unremarkable. Impression: No acute fracture or malalignment. Reviewed, dictated and finalized at location P. Impression: No acute fracture or malalignment.
--- OUTSIDE RECORDS SUMMARY | 2025-06-27 16:18 | XMS_ITS | Clinical Summary ---
Author Organization [facility] Address [address] [place] [address] Care Team Providers Care Road Advisor Name Role Phone Belen Goldberg CAFETERIA FOOD SERVER Primary Care Provider Unavail able Allergies Active [...] on file Legal Sex Female 1:11 PM STUDENT SUPPORT ADVISOR Gender Identity Not on file Sexual Orientation Not on file Last Filed Vital Signs Vital Sign Reading Time Taken Comments Blood Pressure 131/81 10/17/2021 1:45 AM STUDENT SUPPORT ADVISOR Pulse 60 10/16/2021 9:15 PM STUDENT SUPPORT ADVISOR Temperature 36.7 C (98 F) 10/17/2021 1:45 AM STUDENT SUPPORT ADVISOR Respiratory Rate 18 10/17/2021 1:45 AM STUDENT SUPPORT ADVISOR Oxygen Saturation 97% 10/17/2021 1:45 AM STUDENT SUPPORT ADVISOR Inhaled Oxygen Concentration - - Weight 67 kg (147 lb 11.3 oz) 10/16/2021 5:39 PM STUDENT SUPPORT ADVISOR Height 162.6 cm (5' 4) 10/16/2021 5:39 PM STUDENT SUPPORT ADVISOR Body Mass Index 25.35 10/16/2021 5:39 PM STUDENT SUPPORT ADVISOR Plan of Treatment Health Maintenance Due Date Last Done Comments Colorectal Cancer Screening Colonoscopy (10 Years) 1959 Hepatitis C 1977 DTaP, Tdap and Td Vaccines ( 1 - Tdap) 1978 Pneumococcal Vaccine: 50+ Years (1 of 2 - PCV) 1978 Mammogram Screening 1999 Zoster Vaccines (1 of 2) 2009 Dexa Scan (General) 2024 COVID-19 Vaccine (3 - 2024-2 6 season) 2025 11/15/2020, 10/25/2020 Influenza Adult (#1) 2025 RSV Immunization or 60+ Years (1 - 1-dose 75+ series) 2034 Hepatitis A Vaccines Aged Out No long er eligible based on patient's age to complete this topic Meningococcal B Vaccine Aged Out No l onger eligible based on patient's age to complete this topic Meningococcal Vaccine Aged Out No daxa kaleb eligible based on patient's age to complete this topic RSV Immunizations Under 20 Months Aged Out No longer eligible b ased on patient's age to complete this topic Insurance [facility] [employer] Care Teams Road Advisor Relationship Specialty Start Date End Date Belen Goldberg NP PCP - General COATER SMOKING PIPE 10/16/21
--- OUTSIDE RECORDS SUMMARY | 2025-06-27 16:18 | XMS_ITS | Data Portability ---
Author Organization [facility] Address [address] [place] [address] Care Team Providers Care Packaging Mechanic Name Role Phone ERIKA GABRIEL Primary Care Provider Assessment Encounter Date Assessment Date Assessment LastModified by Organization Details LastModified Time 07/03/2021 07/03/2021 Annual gynecological exam performed. Patient will come back in a year unless there are new symptoms. Not available 06/30/2021 15:59:48 07/08/2022 07/08/2022 Annual gynecological exam performed. Patient will come back in a year unless there are new symptoms. Not available 07/08/2022 15:30:34 07/25/2023 07/25/2023 Annual gynecological exam performed. Patient will come back in a year unless there are new symptoms. Not available 07/25/2023 15:54:14 10/10/2024 10/10/2024 Annual gynecological exam performed. Patient will come back in a year unless there are new symptoms. [email or web address] Not available 10/10/2024 11:51:05 Plan of Treatment Reminders Order Date Submit Date Provider Last Modified By Organization Details Last Modified Time Details Appointments None recorded. Lab pap, IG + HR HPV - HPV regardless but if HPV is positive need subtyping 16,18/45 2024 025 [facility] (Lab), [address], [place], [address], 12:45:00 Referral gastroenter ologist referral [address] - Gastroenterol ogy, [address], [address], [place], [address], 4 22:41:24 Procedures None recorded. Surgeries None recorded. Imaging MAMMO, screening, digital, bilateral [address] [facility], [address], [address], [place], [address], 5 04:05:02 MAMMO, screening, bilateral [address], [address], [place], [address], 3 10:54:07 DEXA, axial skeleton + vertebral fracture assessment [address], [address], [place], [address], 4 14:59:51 MAMMO, screening, digital, bilateral [address] [facility], [address], [address], [place], [address], 2 13:09:43 DEXA, axial skeleton + vertebral fracture assessment [address], [address], [place], [address], 2 15:42:54 Medication Orders None recorded. Patient TargetsNo targets recorded. Patient InstructionsNo instructions recorded. 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 Referral for Family history of cancer of colon Referring Physician: Whit Frey, PREDATORY HUNTER, Encounter Date: 07/25/2023 Results Created Date Observation Date Name Description Value Unit Range Abnormal Flag Note LastModifiedBy Organization Detail LastModifiedTime 07/03/2007/03/2021 IMAGE GUIDE D PAP AND HPV REGAR DLESS image guided Pap, HPV regardless of Pap result SEE RESULT S BELOW CASE REPOR T: Cytol ogy Gynec ologi josé luis Repor t Case: [id number] Autho ronaldo steele Provi sierra: Kaylah woodson , Noel Becker cted: 07/03 1307 CONSTRUCTION TECHNICIAN Order ing Locat ion: [place] Patho logy Recei sudhir: 07/04 0010 First Scree n: Wendy Cortes ret, CT Speci men: Scree romeo Pap - Image d, Cervi x STATE MENT OF ADEQU ACY: Satis facto ry for evalu ation Trans forma tion zone compo nent prese nt FINAL DIAGN OSIS: Negat krystin for Intra epith elial Lesio n or Jonah ornelas (NIL) . Elect kin murray jaqui d by Wendy Cortes ret, CT on 2020 at 5:22 AM ----- ----- ----- ----- ----- ----- ----- ----- ----- ----- ----- ----- ----- ----- ----- ----- ----- ---- HPV RESUL TS: HPV mRNA E6/E7 : No HPV mRNA Detec nasreen NOTE: This high risk HPV mRNA assay detec ts fourt een high- risk HPV types (16, 18, 31, 33, 35, 39, 45, 51, 52, 56, 58, 59, 66, 68) witho ut diffe renti ation . COMME NT: Note: This speci men was revie wed by a Cytot echno logis t and/o r Patho logis t (as indic ated in this repor t) after evalu ation using the Thinp rep Imagi ng Syste m. CLINI [facility] INFOR MATIO N: Menst rual Statu s: LMP (if appli cable ): Clini josé luis Histo ry/Pr eviou s Pap: Type of Neopl maciel (if appli cable ): Signi fican t Clini josé luis Findi ngs: Other Histo ry: Hormo sandra (if appli cable ): PAP EDUCA HYACINTH L NOTE: The Pap Test is a scree romeo test with an inher ent false negat krystin rate. Liqui d-bas e sampl ing may decre ase, but will not elimi mohit, false negat krystin resul ts. A negat krystin resul t does not precl ude the prese nce and/o r devel opmen t of disea se, since the prese nce of abnor mal cells in the sampl e depen ds on the locat ion of the lesio n and sampl ing techn ique. Dawna nued regul ar scree romeo is the best metho d of cance r preve ntion . If repor nasreen cytol ogic findi ng do not corre late with physi josé luis and/o r histo rical findi ngs, furth er inves tigat ion is recom margi d, as clini harvinder jang nted. Not Available [facility] (Lab) [address], [place], [address], 07/11/2021 06:25:43 07/08/20 22 07/08/2022 IMAGE GUIDE D PAP AND HPV REGAR DLESS image guided Pap, HPV regardless of Pap result SEE RESULT S BELOW CASE REPOR T: Cytol ogy Gynec ologi josé luis Repor t Case: [id number] Autho roanldo g Provi sierra: Bry Garcia Colle cted: 07/08 1640 CONSTRUCTION TECHNICIAN Order ing Locat ion: [place] Patho logy Recei sudhir: 07/09 1234 First Scree n: Nacha mpass ak, Sivil ay, CT Rescr een: Kate Garsia , CT Speci men: Scree romeo Pap - Image d, Cervi x STATE MENT OF ADEQU ACY: Satis facto ry for evalu ation Trans forma tion zone compo nent absen t The absen ce of an endoc ervic al compo nent was confi rmed by an addit ional scree ner. FINAL DIAGN OSIS: Negat krystin for Intra epith elial Lesio n or Jonah ornelas (NIL) . Elect kin murray jaqui d by Kate Garsia , CHRISTIE on 2021 at 6:56 PM ----- ----- ----- ----- ----- ----- ----- ----- ----- ----- ----- ----- ----- ----- ----- ----- ----- ---- HPV RESUL TS: HPV mRNA E6/E7 : No HPV mRNA Detec nasreen NOTE: This high risk HPV mRNA assay detec ts fourt een high- risk HPV types (16, 18, 31, 33, 35, 39, 45, 51, 52, 56, 58, 59, 66, 68) witho ut diffe renti ation . COMME NT: Note: This speci men was revie wed by a Cytot echno logis t and/o r Patho logis t (as indic ated in this repor t) after evalu ation using the Thinp rep Imagi ng Syste m. CLINI [facility] INFOR MATIO N: Menst rual Statu s: LMP (if appli cable ): Clini josé luis Histo ry/Pr eviou s Pap: Type of Neopl maciel (if appli cable ): Signi fican t Clini josé luis Findi ngs: Other Histo ry: Hormo sandra (if appli cable ): PAP EDUCA HYACINTH L NOTE: The Pap Test is a scree romeo test with an inher ent false negat krystin rate. Liqui d-bas ed sampl ing may decre ase, but will not elimi mohit, false negat krystin resul ts. A negat krystin resul t does not precl ude the prese nce and/o r devel opmen t of disea se, since the prese nce of abnor mal cells in the sampl e depen ds on the locat ion of the lesio n and sampl ing techn ique. Dawna nued regul ar scree romeo is the best metho d of cance r preve ntion . If repor nasreen cytol ogic findi ng do not corre late with physi josé luis and/o r histo rical findi ngs, furth er inves tigat ion is recom margi d, as clini harvinder jang nted. Not Available [facility] (Lab) [address], [place], [address], 07/13/2022 19:59:06 07/25/20 23 07/25/2023 IMAGE GUIDE D PAP AND HPV REGAR DLESS image guided Pap, HPV regardless of Pap result SEE RESULT S BELOW CASE REPOR T: Cytol ogy Gynec ologi josé luis Repor t Case: [id number] Autho ronaldo steele Provi sierra: Kaylah Bry woodson Colle cted: 07/25 1632 CONSTRUCTION TECHNICIAN Order ing Locat ion: [place] Patho logy Recei sudhir: 07/26 0618 First Scree n: Jon stewart, Kenyatta alexander, CT Speci men: Scree romeo Pap - Image d, Cervi x STATE MENT OF ADEQU ACY: Satis facto ry for evalu ation Trans forma tion zone compo nent prese nt FINAL DIAGN OSIS: Negat krystin for Intra epith elial Lesio n or Jonah ornelas (NIL) . Elect kin murray jaqui d by Jon stewart, Kenyatta alexander, CT on 07/27 at 8:00 PM ----- ----- ----- ----- ----- ----- ----- ----- ----- ----- ----- ----- ----- ----- ----- ----- ----- ---- HPV RESUL TS: HPV mRNA E6/E7 : No HPV mRNA Detec nasreen NOTE: This high risk HPV mRNA assay detec ts fourt een high- risk HPV types (16, 18, 31, 33, 35, 39, 45, 51, 52, 56, 58, 59, 66, 68) witho ut diffe renti ation . COMME NT: This speci men was revie wed by a Cytot echno logis t and/o r Patho logis t (as indic ated in this repor t) after evalu ation using the Thinp rep Imagi ng Syste m. CLINI [facility] INFOR MATIO N: Menst rual Statu s: LMP (if appli cable ): Clini josé luis Histo ry/Pr eviou s Pap: Type of Neopl maciel (if appli cable ): Signi fican t Clini josé luis Findi ngs: Other Histo ry: Hormo sandra (if appli cable ): PAP EDUCA HYACINTH L NOTE: The Pap Test is a scree romeo test with an inher ent false negat krystin rate. Liqui d-bas ed sampl ing may decre ase, but will not elimi mohit, false negat krystin resul ts. A negat krystin resul t does not precl ude the prese nce and/o r devel opmen t of disea se, since the prese nce of abnor mal cells in the sampl e depen ds on the locat ion of the lesio n and sampl ing techn ique. Dawna nued regul ar scree romeo is the best metho d of cance r preve ntion . If repor nasreen cytol ogic findi ng do not corre late with physi josé luis and/o r histo rical findi ngs, furth er inves tigat ion is recom margi d, as clini harvinder jang nted. Not Available [facility] (Lab) [address], [place], [address], 07/27/2023 21:10:24 10/10/19 25 10/10/2024 IMAGE GUIDE D PAP AND HPV REGAR DLESS image guided Pap, HPV regardless of Pap result SEE RESULT S BELOW CASE REPOR T: Cytol ogy Gynec ologi josé luis Repor t Case: [id number] Autho ronaldo g Provi sierra: Saba Melendez NP Colle cted: 10/10 1133 Order ing Locat ion: [place] Patho logy Recei sudhir: 10/11 0841 First Scree n: Sherm an, Camilla Speci men: Scree romeo Pap - Image d, Cervi x STATE MENT OF ADEQU ACY: Satis facto ry for evalu ation Trans forma tion zone compo nent prese nt ----- ----- ----- ----- ----- ----- ----- ----- ----- ----- ----- ----- ----- ----- ----- ----- ----- ---- FINAL DIAGN OSIS: Negat krystin for Intra epith elijulio hartman or Jonah ornelas (NIL) . Elect kin palacios by Camilla chandler on 2024 at 1139 TOWER HELPER ----- ----- ----- ----- ----- ----- ----- ----- ----- ----- ----- ----- ----- ----- ----- ----- ----- ---- HPV RESUL TS: HPV mRNA E6/E7 : No HPV mRNA Detec nasreen NOTE: This high risk HPV mRNA assay detec ts fourt een high- risk HPV types (16, 18, 31, 33, 35, 39, 45, 51, 52, 56, 58, 59, 66, 68) witho ut diffe renti ation . COMME NT: This speci men was revie wed by a Cytot echno logis t and/o r Patho logis t (as indic ated in this repor t) after evalu ation using the Thinp rep Imagi ng Syste m. CLINI [facility] INFOR MATIO N: Menst rual Statu s: LMP (if appli cable ): Clini josé luis Histo ry/Pr eviou s Pap: Type of Neopl maciel (if appli cable ): Signi semaj t Clini josé luis Findi ngs: Other Histo ry: Hormo sandra (if appli cable ): PAP EDUCA HYACINTH L NOTE: The Pap Test is a scree romeo test with an inher ent false negat krystin rate. Liqui d-bas ed sampl ing may decre ase, but will not elimi mohit, false negat krystin resul ts. A negat krystin resul t does not precl ude the prese nce and/o r devel opmen t of disea se, since the prese nce of abnor mal cells in the sampl e depen ds on the locat ion of the lesio n and sampl ing techn ique. Dawna nued regul ar scree romeo is the best metho d of cance r preve ntion . If repor nasreen cytol ogic findi ng do not corre late with physi josé luis and/o r histo rical findi ngs, furth er inves tigat ion is recom margi d, as clini harvinder warra nted. Not Available [facility] (Lab) [address], [place], [address], 10/15/2024 12:45:00 10/26/19 22 10/24/2021 MAMMO , scree romeo, digit al, bilat eral No observ ation record ed. [facility] [address], [place], [address], 10/26/2021 20:07:58 03/15/20 23 03/15/2023 imagi ng/di claudiaos tic resul t No observ ation record ed. [email or web address] [facility] [address], [place], [address], 07/25/2023 16:24:20 03/27/20 24 03/27/2024 MAMMO , scree romeo, bilat eral No observ ation record ed. [facility] [address] [place], [address], 04/03/2024 16:23:02 04/02/20 24 03/27/2024 DEXA, axial skele ton + verte bral fract ure asses sment No observ ation record ed. [email or web address] [place] [address] Radiology [address] [place], [address], 04/04/2024 12:23:03 09/19/20 25 05/23/2025 imagi ng/di agnos tic resul t No observ ation record ed. [facility] [address] [place], [address], 05/24/2025 08:40:22 Result Notes Documentation Provider Name and Address Organization Details Recorded Time Pap, Ig + Hr Hpv : NL-no pp. ok to file. /larma Ab Olson [facility] 07/20/2021 14:08:03 Problems Name Problem SNOMED Code Status Onset Date Resolution Date Notes Provider Name and Address Organization Details Recorded Time Screenin g for malignan t neoplasm of cervix Completed 201106/01/2012 Screening for malignant neoplasms of the cervix;Re corded Elsewhere : No Locati on: [facility] So urce: EHR Chron ic: N Practic e ID: 0001 Bill able Time: 02:15:00 PM Mirlande [facility] 15:41:48 Adult health examinat ion Completed 201106/01/2012 Routine Medical Exam;Jay rded Elsewhere : No Locati on: [facility] So urce: EHR Chron ic: N Practic e ID: 0001 Bill able Time: 02:15:00 PM Mirlande Bey [facility] 1 15:40:07 Speciali zed medical examinat ion Completed 201106/30/2021 Routine gynecolog ical examinati on;Practi ce ID: 0001 Mirlande Bey [facility] 15:41:57 Screenin g for malignan t neoplasm of rectum Completed 201106/01/2012 Screening for malignant neoplasms of the rectum;Re corded Elsewhere : No Locati on: [facility] So urce: EHR Chron ic: N Practic e ID: 0001 Bill able Time: 02:15:00 PM Mirlande Bey [facility] 15:41:50 Postcoit al bleeding [id number] Completed 201106/30/2021 Postcoita l bleeding; Practice ID: 0001 Mirlande Bey [facility] 15:40:20 Erosion and ectropio n of the cervix Completed 201106/30/2021 Erosion and ectropion of cervix;Pr actice ID: 0001 Mirlande Bey [facility] 15:40:14 Pregnanc y test negative [id number] Completed 201106/30/2021 Negative Test;Prac debra ID: 0001 Mirlande Bey [facility] 15:40:21 Adult health examinat ion Completed 201306/30/2021 Routine general medical examinati on at a health care facility; Practice ID: 0001 Mirlande Bey [facility] 15:40:07 Disorder of bone and articula r cartilag e [id number] Completed 201306/30/2021 Disorder of bone and cartilage , unspecifi ed;Record ed Elsewhere : No Locati on: [facility] So urce: EHR Chron ic: N Practic e ID: 0001 Bill able Time: 08:18:57 AM Mirlande Bey [facility] 15:40:11 Screenin g for malignan t neoplasm of cervix Completed 201406/30/2021 Encounter for screening for malignant neoplasm of cervix;Pr actice ID: 0001 Mirlande Bey [facility] 15:41:48 Ulcerati on of vulva [id number] Completed 201506/30/2021 Ulceratio n of vulva;Pra ctice ID: 0001 Mirlande Bey [facility] 15:41:59 Blood leukocyt e number above referenc e range [id number] Completed 201606/30/2021 Elevated white blood cell count, unspecifi ed;Practi ce ID: 0001 Mirlande montesinos [facility] 15:40:16 Osteopor osis [id number] Completed 201606/30/2021 Age-relat ed osteoporo sis w/o current pathologi josé luis fracture; Practice ID: 0001 Mirlande montesinos [facility] 15:40:18 Prolapse of female genital organs [id number] Completed 201606/30/2021 Female genital prolapse, unspecifi ed;Practi ce ID: 0001 Mirlande montesinos [facility] 15:40:24 Dysuria [id number] Completed 201606/30/2021 Dysuria;P ractice ID: 0001 Mirlande montesinos [facility] 15:40:13 Acute vaginiti s [id number] Completed 201706/30/2021 Acute vaginitis ;Practice ID: 0001 Mirlande montesinos [facility] 15:40:06 Vaginola bial hernia Completed 201706/30/2021 Other specified noninflam matory disorders of vagina;Pr actice ID: 0001 Mirlande montesinos [facility] 15:42:[address] Concept Completed 201806/30/2021 Encntr for general adult medical exam w/o abnormal findings; Practice ID: 0001 Mirlande montesinos [facility] 15:41:[address] Concept Completed 201806/30/2021 Encntr for manager of quality exam (general) (routine) w/o abn findings; Practice ID: 0001 Mirlande montesinos [facility] 15:41:53 Screenin g for malignan t neoplasm of rectum Completed 201806/30/2021 Encounter for screening for malignant neoplasm of rectum;Pr actice ID: 0001 Mirlande Bey [facility] 15:41:50 Atypical squamous cells of undeterm ined signific ance on cervical Papanico laou smear [id number] Completed 201806/30/2021 Atyp squam cell of undet signfc cyto smr crvx (ASC-US); Practice ID: 0001 Mirlande Bey [facility] 15:40:09 Problem Notes None recorded. Procedures Surgical History Date Name Laterality Status Provider Name and Address Organization Details Recorded Time 06/22/20 24 Date of Last Colonoscopy completed [facility] 10/10/2024 12:01:32 06/22/20 24 Colonoscopy completed [facility] 10/10/2024 11:50:10 03/27/20 24 Date of Last Mammogram completed [facility] 10/10/2024 11:50:58 07/25/20 23 Date of Last Pap Smear completed WAN Real [facility] 10/09/2024 17:57:22 09/05/19 19 procedure on foot completed Mirlande Bey [facility] 06/30/2021 15:51:12 06/15/20 18 completed Mirlande [facility] 06/30/2021 15:56:17 08/01/20 12 Colposcopy completed Mirlande [facility] 06/30/2021 15:55:03 09/05/19 10 Colonoscopy completed [facility]ERR[facility] [address], [place], [address], [facility] 07/03/2021 12:37:20 09/05/19 05 procedure on shoulder completed [facility] 06/30/2021 15:50:42 09/05/18 99 Tubal Ligation completed [facility] 06/30/2021 15:50:22 09/05/18 95 Appendectomy completed [facility] 06/30/2021 15:49:08 09/05/18 92 Dilation and Curettage completed [facility] 06/30/2021 15:48:48 Partial Hysterectomy completed [facility] 06/30/2021 15:49:51 reconstruction of vagina completed [facility] 06/30/2021 15:50:32 Imaging Results None recorded. Procedure Notes None recorded. Medical Equipment None Reported. Allergies Allergen ID Allergen Name Allergen Category Reaction Reaction Severity Criticality Documentation Date Start Date Code Code System Note Provider Name and Address Organization Details Recorded Time 60349 codeine medicatio n Not available Not available Not available 08/22/2020 2670 RxNorm Comme nt: [facility]; Not Available [facility] 0 14:17:57 98775 Product containin g penicilli n (product) medicatio n Not available Not available Not available 08/22/2020 94360 8001 SNOMED Comme nt: [facility]at [facility]; Not Available [facility] 0 14:17:57 Medications Name Sig Start Date Stop Date Status Note LastModified by Organization Details LastModified Time hydrocort isone 150mg supposito ry INSERT ONE SUPPOSIT ORY RECTALLY ONCE OR TWICE A DAY INCLUDIN G BEFORE BED 10/10 completed Not Available Not Available Not Available celecoxib 200 mg capsule TAKE 1 CAPSULE BY MOUTH EVERY DAY 10/10 completed Not Available Not Available Not Available cyclobenz aprine 10 mg tablet TAKE 1 TABLET BY MOUTH 3 TIMES A DAY NEEDED FOR MUSCLE SPASMS 07/08 completed Not Available Not Available Not Available doxycycli ne hyclate 100 mg capsule TAKE 1 CAPSULE BY MOUTH TWICE A DAY FOR 10 DAYS 07/24 completed Not Available Not Available Not Available chlorzoxa zone 500 mg tablet TAKE 1 TABLET BY MOUTH 3 TIMES A DAY NEEDED FOR PAIN AND/OR MUSCLE SPASMS 07/08 completed Not Available Not Available Not Available hydrocodo ne 5 mg-acetam inophen 325 mg tablet 10/10 completed Not Available Not Available Not Available meloxicam 15 mg tablet TAKE 1 TABLET BY MOUTH EVERY DAY 07/08 completed Not Available Not Available Not Available Diflucan 150 mg tablet take 1 tablet by oral route once 06/30 completed Prescrib ed Elsewher e: No Locat ion: Juvencio seals [facility] odify By: luis degroot DateTime : 11/25/19 18 04:16:46 PM Not Available Not Available Not Available valacyclo vir 500 mg tablet TAKE 1 TABLET BY MOUTH EVERY 12 HOURS FOR 3 DAYS 10/10 completed Not Available Not Available Not Available peg-elect rolyte solution 420 gram oral solution 10/10 completed Not Available Not Available Not Available hydrocort isone acetate 25 mg rectal supposito ry UNWRAP 1 SUPPOSIT ORY AND INSERT RECTALLY DAILY NEEDED FOR HEMORRHO IDS 10/10 completed Not Available Not Available Not Available ketorolac 10 mg tablet TAKE 1 TABLET BY MOUTH EVERY 6 HOURS FOR 4 DAYS 10/10 completed Not Available Not Available Not Available oxycodone -acetamin ophen 5 mg-325 mg tablet TAKE 0.5 - 1 TABLET BY MOUTH EVERY 6 HOURS NEEDED FOR PAIN 10/10 completed Not Available Not Available Not Available terbinafi ne HCl 250 mg tablet 07/03 completed Not Available Not Available Not Available Metrogel Vaginal 0.75 % (37.5 mg/5 gram) insert 1 applicat orful by vaginal route for 5 nights at bedtime 10/11 completed Prescrib ed Elsewher e: No Locat ion: Juvencio [facility] odify By: amkkezia chen DateTime : 06/24/20 16 10:59:31 AM Not Available Not Available Not Available Flagyl 500 mg tablet take 1 tablet by oral route 2 times every day 11/22 completed Prescrib ed Elsewher e: No Locat ion: Juvencio seals [facility] odify By: tony Dunn r DateTime : 10/15/19 11:13:20 AM Not Available Not Available Not Available Valtrex 1 gram tablet take 1 tablet by oral route every day 07/08 completed Prescrib ed Elsewher e: No Locat ion: Juvencio seals [facility] odify By: tony Dunn r DateTime : 10/03/19 03:25:34 PM Not Available Not Available Not Available diclofena c sodium 75 mg tablet,de layed release TAKE 1 TABLET BY MOUTH TWICE A DAY WITH MEALS NEEDED FOR PAIN 07/08 completed Not Available Not Available Not Available oxycodone -acetamin ophen 7.5 mg-325 mg tablet 10/10 completed Not Available Not Available Not Available methylpre dnisolone 4 mg tablets in a dose pack TAKE BY MOUTH DIRECTED ON INSIDE OF PACKAGE 10/10 completed Not Available Not Available Not Available Bactrim DS 800 mg-160 mg tablet take 1 tablet by oral route every 12 hours 11/22 completed Prescrib ed Elsewher e: No Locat ion: Juvencio seals [facility] odify By: tony flores DateTime : 10/11/19 10:30:00 AM Not Available Not Available Not Available pregabali n 75 mg capsule TAKE 1 CAPSULE BY MOUTH TWICE A DAY 07/08 completed Not Available Not Available Not Available Dexatrim Natural 600 mg-100 mg-250 mcg tablet 06/18 completed Prescrib ed Elsewher e: Yes Loca tion: [facility] odify By: aleksandra chen DateTime : 10/25/19 12 03:57:57 PM Not Available Not Available Not Available Suprep Bowel Prep Kit 17.5 gram-3.13 gram-1.6 gram oral solution 07/03 completed Not Available Not Available Not Available Vitals Date Recorded Body height Body mass index (BMI) Body weight Systolic And Diastolic Provider Name and Address Organization Details Last Updated DateTime 10/10/2024 162.56 cm 24.8 kg/m2 92975.02 g 121/70 mm[Hg] Maria Antonia Finch [facility] 10/10/2024 11:58:30 Date Recorded Body height Body mass index (BMI) Body weight Systolic And Diastolic Provider Name and Address Organization Details Last Updated DateTime 07/03/2021 163.83 cm 24.2 kg/m2 96176.71 g 116/75 mm[Hg] [facility] 07/03/2021 12:32:22 Date Recorded Systolic And Diastolic Provider Name and Address Organization Details Last Updated DateTime 07/08/2022 122/82 mm[Hg] Whit Frey, [facility]- [address], [place], [address], [facility] 07/08/2022 15:55:29 Date Recorded Body height Body weight Body mass index (BMI) Provider Name and Address Organization Details Last Updated DateTime 07/08/2022 162.56 cm 52078.3 g 24.7 kg/m2 [facility] 07/08/2022 15:31:45 Date Recorded Body height Body mass index (BMI) Body weight Systolic And Diastolic Provider Name and Address Organization Details Last Updated DateTime 07/25/2023 162.56 cm 24.5 kg/m2 17778.71 g 107/73 mm[Hg] Calista Posey [facility] 07/25/2023 15:55:46 Social History Question Answer Notes LastModified by Organizat ion Details LastModified Time Tobacco Smoking Status Former Smoker Margareth Ewing yamel, [facility] 07/25/2023 15:39:48 Are You Blind Or Do You Have Difficulty Seeing? No Information not available 06/30/2021 What Is Your Level Of Caffeine Consumption? Occasional Information not available 06/30/2021 In The 14 Days Before Symptom Onset, Have You Had Close Contact With A Laboratory-confir med COVID-19 While That Case Was Ill? No Information not available 07/25/2023 In The 14 Days Before Symptom Onset, Have You Had Close Contact With A Person Who Is Under Investigation For COVID-19 While That Person Was Ill? No Information not available 07/25/2023 Have You Been To An Area Known To Be High Risk For COVID-19? No Information not available 07/25/2023 Are You Deaf Or Do You Have Serious Difficulty Hearing? No Information not available 06/30/2021 What Type Of Diet Are You Following? REGULAR Information not available 06/30/2021 Do You Use Your Seat Belt Or Car Seat Routinely? Yes Information not available 06/30/2021 Do You Have Smoke And Carbon Monoxide Detectors In Your Home? Yes Information not available 06/30/2021 Do You Use Sunscreen Routinely? Yes Information not available 06/30/2021 Sex: Unknown Functional Status Question Answer Note LastModified by Market Track ion Details LastModified Time Do you use any illicit or recreational drugs? No Information not available 06/30/2021 What is your level of alcohol consumption? Occasional Information not available 06/30/2021 Are you able to walk independently without assistance or assistive devices? YESWOREST Information not available 06/30/2021 What is your exercise level? Occasional Information not available 06/30/2021 Mental Status Question Answer Note LastModified by Organization D etails LastModified Time Do you feel stressed (tense, restless, nervous, or anxious, or unable to sleep at night)? [id number] Information not available 06/30/2021 Family History Relationship Description Onset Age of this Age Resolved Age Notes LastModified by Organization Details LastModified Time Brother Mental disorder Not available 2020 15:43:00 Father Malignant neoplasm of colon Not available 2020 15:43:12 Father Malignant neoplasm of liver [email or web address] Not available 2024 11:49:21 Maternal Grandmother Heart disease CAD Not available 2020 15:43:37 Maternal Grandmother Diabetes mellitus Not available 2020 15:43:45 Medical History Condition Response GI Problems Y Osteoporosis Y Gynecological History Statement/Question Response Abnormal Pap Y Date of Last Mammogram 03/27/2024 STIs/STDs Y Colposcopy 08/01/2012 06/15/2018 13 Current Control Method Tubal Ligat ion If Post Menopausal, Age at Menopause 89 9 Date of Last Colonoscopy 06/22/2024 Most Recent Bone Density Sexually Active? Y Menses Monthly N Date of DEXA bone scan Date of Last Pap Smear 07/25/2023 Sexual Problems? N LMP Unknown Obstetrics History GPAL:G 6 P 0 0 1 5 Type Value Spontaneous 1 Living 5 Total 6 Past Encounters Encounter ID Performer Location Encounter Start Date Encounter Closed Date Diagnosis/Indication Diagnosis SNOMED-CT Code Diagnosis ICD10 Code Diagnosis IMO Codes Diagnosis Note [id number] Whit Frey [facility] [address],[place] [address] 07/03/2021 12:17:58 07/03/2021 12:57:43 Gynecologic examination 11835803 Z01.419 Take Calcium with Vitamin D 12-1500mg daily. Do monthly self breast exams. It is advised to get annual flu shot in the fall and she could obtain at [facility] or [facility] clinic. If you haven't received the Tdap vaccine in the last 10 years you should obtain one as well. Have mammogram yearly, bone density every 2-3 years and colonoscop y every 5-10 years depending on findings and history. Engage in daily exercise of low impact aerobic exercise 45-60 minutes 4-5 times weekly. Avoid tobacco and illicit drugs as well as using moderation with alcohol intake less than 1-2 8 oz beverages daily. This lifestyle behavior pattern will lead to less health conditions and longer life span. If BMI greater than 25 weight watchers or dietary consult advised. Questions have been answered. Patient appears to understand instructio ns, but if you have any further questions call or respond to this email Pap/hpv sentSTD declinedMa mmo orderedDex a orderedCol on UTDGenetic cancer screen discussed. Screening mammography 24 434084 Z12.31 Postmenopa usal osteopenia 147799512 M85.80 Postmenopausal state 764 78259 Z78.0 [id number] [facility] [address] [address] 07/08/2022 15:16:27 07/08/2022 16:13:00 Gynecologic examination 32020320 Z01.419 Z11.51 Take Calcium with Vitamin D 12-1500mg daily. Do monthly self breast exams. It is advised to get annual flu shot in the fall and she could obtain at [facility] or [facility]. If you haven't received the Tdap vaccine in the last 10 years you should obtain one as well. Have mammogram yearly, bone density every 2-3 years and colonoscop y every 5-10 years depending on findings and history. Engage in daily exercise of low impact aerobic exercise 45-60 minutes 4-5 times weekly. Avoid tobacco and illicit drugs as well as using moderation with alcohol intake less than 1-2 8 oz beverages daily. This lifestyle behavior pattern will lead to less health conditions and longer life span. If BMI greater than 25 weight watchers or dietary consult advised. Questions have been answered. Patient appears to understand instructio ns, but if you have any further questions call or respond to this email Pap/hpv sent STD Screen declined Genetic Screen discussed Colon Screen PCP Dexa Screen PCP [facility] [place] [id number] Whit Frey [facility] [address] [address] 07/25/2023 15:38:22 07/25/2023 16:26:46 Gynecologic examination 58232931 Z01.419 Z11.51 Take Calcium with Vitamin D 12-1500mg daily. Do monthly self breast exams. It is advised to get annual flu shot in the fall and she could obtain at [facility] or [facility]. If you haven't received the Tdap vaccine in the last 10 years you should obtain one as well. Have mammogram yearly, bone density every 2-3 years and colonoscop y every 5-10 years depending on findings and history. Engage in daily exercise of low impact aerobic exercise 45-60 minutes 4-5 times weekly. Avoid tobacco and illicit drugs as well as using moderation with alcohol intake less than 1-2 8 oz beverages daily. This lifestyle behavior pattern will lead to less health conditions and longer life span. If BMI greater than 25 weight watchers or dietary consult advised. Questions have been answered. Patient appears to understand instructio ns, but if you have any further questions call or respond to this email Pap/hpv sentSTD Screen declinedGe netic Screen discussedC olon Screen PCPDexa Screen PCPRoutine Labs PCPMammo wnl Screening mammography 24 396400 Z12.31 Family his tory of cancer of colon 828453426 Z80.0 Z12.11 Postmenopa usal osteopenia 308258825 Z78.0 [id number] TERRANCE Fierro [place] [address] [address] 10/10/2024 11:44:01 10/10/2024 13:31:37 Gynecologic examination 34421107 Z01.419 WWEPap - done todaySTI screen - declinedMa mmogram - order givenColon cancer screening - UTD/PCPDex a - UTD, discussed calcium/vi tamin D, appropriat e weight bearing exercises - repeat dexa 2025Routin e labs - UTD/PCPcon gratulated her on quitting smoking!!R TC in 1 yr or sooner if needed Do monthly self breast exams.It is advised to get annual flu shot in the fall and she could obtain at local pharmacy. If you haven't received the Tdap vaccine in the last 10 years you should obtain one as well.Have mammogram yearly, bone density every 2-3 years and stay up to date on colon cancer screening. Engage in regular exercise. Avoid tobacco and illicit drugs. This lifestyle behavior pattern will lead to less health conditions and longer life span. If BMI greater than 25 dietary consult advised.Qu estions have been answered. Screening for malignant neoplasm of breast 661863833 Z12.39 Health Concerns Section Related Observation LastModified by Organization Detai ls LastModified Time None Recorded Concern Status LastModified by Organization Details LastModified Time None Recorded Advance Directives Directive None Recorded Payers Insurance Date Sequence Insurance Name Policy Number Policy Marcus Covered Member ID Marcus Member ID Guarantor Name 10/10/2024 2 [facility] (INDEMNITY) Roya Lorenzo [id number] Roya Lorenzo 10/10/2024 1 [facility] (MEDICARE REPLACEMENT/A DVANTAGE - HMO) [id number] Roya Lorenzo [id number] Roya Lorenzo 10/03/2024 1 [facility] [id number] Mohinder Lorenzo [id number] Roya Key Ayshaestephania Notes Date Note Type Note Provider Name and Address Organization Details Recorded Time 1 text/html Annual Hotel Assistant Manager Post-MenopausalReported by PatientGenitourinary symptomsFor menopausal symptoms, patient reportsno menopausal symptomsandnormal vaginal lubrication. For vaginal bleeding, patient reportshistory of menopause having occurredandno history of post menopausal bleeding. For urinary symptoms, patient reportsno hematuria,no incontinence,no nocturia, andno urinary frequency. For vulva, patient reportsno genital lesionandno vulvar atrophy. For vagina, patient reportsnormal vaginal dischargeandno vaginal atrophy.Breast symptomsFor breast, patient reportsno breast lump,no nipple discharge, andno breast pain.Psychological symptomsFor sexual complaints, patient reportsno sexual complaints. For psychological symptoms, patient reportsno depressionandno anxiety.Preventative measuresFor preventive measures, patient reportsencourage regular mammograms starting age 40,encourage self breast examination,encourage regular exercise,encourage no tobacco use,needs to schedule mammogram,history of recent colonoscopy, andneeds to schedule bone density. TERRANCE Cook- [address], [place], [address], [facility] 07/03/2021 12:45:12 2 text/html Annual Hotel Assistant Manager Post-MenopausalReported by PatientGenitourinary symptomsFor menopausal symptoms, patient reportsno menopausal symptomsandnormal vaginal lubrication. For vaginal bleeding, patient reportshistory of menopause having occurredandno history of post menopausal bleeding. For urinary symptoms, patient reportsno hematuria,no incontinence,no nocturia, andno urinary frequency. For vulva, patient reportsno genital lesionandno vulvar atrophy. For vagina, patient reportsnormal vaginal dischargeandno vaginal atrophy.Breast symptomsFor breast, patient reportsno breast lump,no nipple discharge, andno breast pain.Psychological symptomsFor sexual complaints, patient reportsno sexual complaints. For psychological symptoms, patient reportsno depressionandno anxiety.Preventative measuresFor preventive measures, patient reportsencourage regular mammograms starting age 40,encourage self breast examination,encourage regular exercise,encourage no tobacco use,mammogram performed within the past year, andhistory of recent colonoscopy. MART CookNP-BC [address], [place], [address], [facility] 07/08/2022 16:00:41 3 text/html Annual Hotel Assistant Manager Post-MenopausalReported by PatientGenitourinary symptomsFor menopausal symptoms, patient reportsno menopausal symptomsandnormal vaginal lubrication. For vaginal bleeding, patient reportshistory of menopause having occurredandno history of post menopausal bleeding. For urinary symptoms, patient reportsno hematuria,no incontinence,no nocturia, andno urinary frequency. For vulva, patient reportsno genital lesionandno vulvar atrophy. For vagina, patient reportsnormal vaginal dischargeandno vaginal atrophy.Breast symptomsFor breast, patient reportsno breast lump,no nipple discharge, andno breast pain.Psychological symptomsFor sexual complaints, patient reportsno sexual complaints. For psychological symptoms, patient reportsno depressionandno anxiety.Preventative measuresFor preventive measures, patient reportsencourage regular mammograms starting age 40,encourage self breast examination,encourage regular exercise,encourage no tobacco use,needs to schedule mammogram,needs to schedule colonoscopy, andneeds to schedule bone density. Whit Frey, [facility] [address], [place], [address], [facility] 07/25/2023 16:26:33 5 text/html Annual Hotel Assistant Manager Post-MenopausalReported by PatientGenitourinary symptomsFor menopausal symptoms, patient reportsno menopausal symptomsandnormal vaginal lubrication. For vaginal bleeding, patient reportshistory of menopause having occurredandno history of post menopausal bleeding. For urinary symptoms, patient reportsno hematuria,no incontinence,no nocturia, andno urinary frequency. For vulva, patient reportsno genital lesionandno vulvar atrophy. For vagina, patient reportsnormal vaginal dischargeandno vaginal atrophy.Breast symptomsFor breast, patient reportsno breast lump,no nipple discharge, andno breast pain.Psychological symptomsFor sexual complaints, patient reportsno sexual complaints. For psychological symptoms, patient reportsno depressionandno anxiety.Preventative measuresFor preventive measures, patient reportsencourage regular mammograms starting age 40,encourage self breast examination,encourage regular exercise, andencourage no tobacco use.64yo wweh/o supracervical hystlast pap 07/2023 : nilm, HPV (-)colonoscopy UTDmammogram last exa last 03/2024 - osteopenia quit smoking 8 days ago! TERRANCE Fierro [address], [place], [address], [place] [facility] 10/10/2024 13:27:29 OBGyn Episode Ob Episode Information Episode Created Date Number of Fetuses Patient Bloodtype Patient rh Status Prepregnancy Weight lbs Domestic Partner Domestic Partner Phone Father Name Operations Research Director Status 06/30/20 21 1 CLOSED Fetus Data First Name Last Name Admitted to NICU Weight (g) Sex Living Outcome Pediatric Complications Fetus ID Race Codes Race Delivery Type M [id number] Vaginal Delivery Arnulfo Calculation Initial Arnulfo Date Initial Exam Date Initial Exam Provider Initial Ultrasound Date Last Menstrual Period Date Ultra Sound Weeks Gestation 0 Eighteen To Twenty Week Arnulfo Update Ultra Sound Date Fundal Height At Umbil Quickening Date Ultra Sound Latest Weeks Gestation Final Arnulfo Confirmed By Final Arnulfo Confirmed Date Final Arnulfo Date Ultra Sound Latest Days Gestation 0 0 Menstrual History Last Menstrual Date Menses Monthly On Bcp Conception Prior Menses Frequency Hcg Plus Date Menarche Onset Age Delivery Information Delivery Date Delivery Type Labor Anesthesia Weeks Gestation Incision Type Labor Labor Length Hrs Delivered By Post Complications Tubal Sterilization Discharge Date Comments 2 Discharge Information Feeding Method Contraceptive Method Maternal HG B and HCT Levels Ob Episode Information Episode Created Date Number of Fetuses Patient Bloodtype Patient rh Status Prepregnancy Weight lbs Domestic Partner Domestic Partner Phone Father Name Operations Research Director Status 06/30/20 21 1 CLOSED Fetus Data First Name Last Name Admitted to NICU Weight (g) Sex Living Outcome Pediatric Complications Fetus ID Race Codes Race Delivery Type , Spontane ous [id number] Arnulfo Calculation Initial Arnulfo Date Initial Exam Date Initial Exam Provider Initial Ultrasound Date Last Menstrual Period Date Ultra Sound Weeks Gestation 0 Eighteen To Twenty Week Arnulfo Update Ultra Sound Date Fundal Height At Umbil Quickening Date Ultra Sound Latest Weeks Gestation Final Arnulfo Confirmed By Final Arnulfo Confirmed Date Final Arnulfo Date Ultra Sound Latest Days Gestation 0 0 Menstrual History Last Menstrual Date Menses Monthly On Bcp Conception Prior Menses Frequency Hcg Plus Date Menarche Onset Age Delivery Information Delivery Date Delivery Type Labor Anesthesia Weeks Gestation Incision Type Labor Labor Length Hrs Delivered By Post Complications Tubal Sterilization Discharge Date Comments 2 Discharge Information Feeding Method Contraceptive Method Maternal HG B and HCT Levels Ob Episode Information Episode Created Date Number of Fetuses Patient Bloodtype Patient rh Status Prepregnancy Weight lbs Domestic Partner Domestic Partner Phone Father Name Operations Research Director Status 06/30/20 21 1 CLOSED Fetus Data First Name Last Name Admitted to NICU Weight (g) Sex Living Outcome Pediatric Complications Fetus ID Race Codes Race Delivery Type M [id number] Vaginal Delivery Arnulfo Calculation Initial Arnulfo Date Initial Exam Date Initial Exam Provider Initial Ultrasound Date Last Menstrual Period Date Ultra Sound Weeks Gestation 0 Eighteen To Twenty Week Arnulfo Update Ultra Sound Date Fundal Height At Umbil Quickening Date Ultra Sound Latest Weeks Gestation Final Arnulfo Confirmed By Final Arnulfo Confirmed Date Final Arnulfo Date Ultra Sound Latest Days Gestation 0 0 Menstrual History Last Menstrual Date Menses Monthly On Bcp Conception Prior Menses Frequency Hcg Plus Date Menarche Onset Age Delivery Information Delivery Date Delivery Type Labor Anesthesia Weeks Gestation Incision Type Labor Labor Length Hrs Delivered By Post Complications Tubal Sterilization Discharge Date Comments 5 Discharge Information Feeding Method Contraceptive Method Maternal HG B and HCT Levels Ob Episode Information Episode Created Date Number of Fetuses Patient Bloodtype Patient rh Status Prepregnancy Weight lbs Domestic Partner Domestic Partner Phone Father Name Operations Research Director Status 06/30/20 21 1 CLOSED Fetus Data First Name Last Name Admitted to NICU Weight (g) Sex Living Outcome Pediatric Complications Fetus ID Race Codes Race Delivery Type M [id number] Vaginal Delivery Arnulfo Calculation Initial Arnulfo Date Initial Exam Date Initial Exam Provider Initial Ultrasound Date Last Menstrual Period Date Ultra Sound Weeks Gestation 0 Eighteen To Twenty Week Arnulfo Update Ultra Sound Date Fundal Height At Umbil Quickening Date Ultra Sound Latest Weeks Gestation Final Arnulfo Confirmed By Final Arnulfo Confirmed Date Final Arnulfo Date Ultra Sound Latest Days Gestation 0 0 Menstrual History Last Menstrual Date Menses Monthly On Bcp Conception Prior Menses Frequency Hcg Plus Date Menarche Onset Age Delivery Information Delivery Date Delivery Type Labor Anesthesia Weeks Gestation Incision Type Labor Labor Length Hrs Delivered By Post Complications Tubal Sterilization Discharge Date Comments 3 Discharge Information Feeding Method Contraceptive Method Maternal HG B and HCT Levels Ob Episode Information Episode Created Date Number of Fetuses Patient Bloodtype Patient rh Status Prepregnancy Weight lbs Domestic Partner Domestic Partner Phone Father Name Operations Research Director Status 06/30/20 21 1 CLOSED Fetus Data First Name Last Name Admitted to NICU Weight (g) Sex Living Outcome Pediatric Complications Fetus ID Race Codes Race Delivery Type M [id number] Vaginal Delivery Arnulfo Calculation Initial Arnulfo Date Initial Exam Date Initial Exam Provider Initial Ultrasound Date Last Menstrual Period Date Ultra Sound Weeks Gestation 0 Eighteen To Twenty Week Arnulfo Update Ultra Sound Date Fundal Height At Umbil Quickening Date Ultra Sound Latest Weeks Gestation Final Arnulfo Confirmed By Final Arnulfo Confirmed Date Final Arnulfo Date Ultra Sound Latest Days Gestation 0 0 Menstrual History Last Menstrual Date Menses Monthly On Bcp Conception Prior Menses Frequency Hcg Plus Date Menarche Onset Age Delivery Information Delivery Date Delivery Type Labor Anesthesia Weeks Gestation Incision Type Labor Labor Length Hrs Delivered By Post Complications Tubal Sterilization Discharge Date Comments 8 Discharge Information Feeding Method Contraceptive Method Maternal HG B and HCT Levels Ob Episode Information Episode Created Date Number of Fetuses Patient Bloodtype Patient rh Status Prepregnancy Weight lbs Domestic Partner Domestic Partner Phone Father Name Operations Research Director Status 06/30/20 21 1 CLOSED Fetus Data First Name Last Name Admitted to NICU Weight (g) Sex Living Outcome Pediatric Complications Fetus ID Race Codes Race Delivery Type M 65351 Vaginal Delivery Arnulfo Calculation Initial Arnulfo Date Initial Exam Date Initial Exam Provider Initial Ultrasound Date Last Menstrual Period Date Ultra Sound Weeks Gestation 0 Eighteen To Twenty Week Arnulfo Update Ultra Sound Date Fundal Height At Umbil Quickening Date Ultra Sound Latest Weeks Gestation Final Arnulfo Confirmed By Final Arnulfo Confirmed Date Final Arnulfo Date Ultra Sound Latest Days Gestation 0 0 Menstrual History Last Menstrual Date Menses Monthly On Bcp Conception Prior Menses Frequency Hcg Plus Date Menarche Onset Age Delivery Information Delivery Date Delivery Type Labor Anesthesia Weeks Gestation Incision Type Labor Labor Length Hrs Delivered By Post Complications Tubal Sterilization Discharge Date Comments 4 Discharge Information Feeding Method Contraceptive Method Maternal HG B and HCT Levels
--- OUTSIDE RECORDS SUMMARY | 2025-06-27 16:18 | XMS_ITS | Patient Health Record ---
Author Organization [facility] Address [address] [place], [place] [id number] Care Team Providers Care Pet Caretaker Name Role Phone JABARI Vanegas Unavailable Charu Macias Unavailable Unavailable Reason For Referral No Information Plan Of Treatment No Information Insurance Providers Payer Name Payer Address Payer Phone Subscriber Number Group Number Insured Name Patient Relationship to Insured Coverage Start Date Coverage End Date [employer] [address] [place], [place] [phone] [id number] BENJI CHOWDARY Self - patient is the insured
--- OUTSIDE RECORDS SUMMARY | 2025-06-27 16:18 | XMS_ITS | Clinical Summary ---
Author Organization [facility] Simple Address [address] [facility] [address] [place] [address] Care Team Providers Care Production Consultant Name Role Phone Charu Macias MD Primary Care Provider [phone] Source Comments [facility],non-owned Affiliates and Associated Physician Practices is amultiple site organization consisting of ambulatory clinics and hospital sitesin [place] and [place]. This disclosure is being madepursuant to the Care Everywhere program and may not contain all information available regarding this patient. Last updated 18.[facility] Simple Allergies Active Allergy Reactions Criticality Noted Date Comments Codeine TEMPORARY DATA ENTRY CLERK Dysfunction 04/16/2025 Penicillins Rash Medium 04/16/2025 Medications * Be aware that medications may not be up to date on this document. Alwaysverify current medications with the patient. No known medications Encounters Date Type Department Care Team Description 06/25/2025 Orders Only [facility] - Orthopedics [address] [place] [phone] Isaías Lan MD Right shoulder pain, unspecified chronicity 04/16/2025 11:00 AM CDT Office Visit [facility] - Orthopedics [address] [place] [phone] Isaías Lan MD Rotator cuff tendinitis, right (Primary Dx) 04/16/2025 10:53 AM CDT - 04/16/2025 11:59 PM CDT Hospital Encounter [facility] DIAGNOSTIC RAD [address] [place] [phone] Isaías Lan MD Discharge Disposition: Home or Self Care 04/16/2025 Travel 04/15/2025 Orders Only [facility] - Orthopedics [address] [place] [phone] Isaías Lan MD Right shoulder pain, unspecified [...] Orientation Not on file Plan of Treatment Upcoming Encounters Date Type Department Care Team (Late st Contact Info) Description 07/03/2025 4:30 PM CDT Appointment [facility] MRI [address] [place] [phone] Isaías Lan MD [address] [phone] Health Maintenance Due Date Last Done Comments [...] report was drafted by Danii Lakhani MD (president educational institution) 04/16/2025 11:25 AM. > Dictated by Customer Account Representative I, Gordo Diaz MD have personally reviewed and interpreted this examination/study. > Interpreting Provider: Gordo Diaz MD on 04/16/2025 11:47 AM Narrative 04/16/2025 11:47 AM CDT PROCEDURE: XR SHOULDER RIGHT 2VW OR MORE, DATE/TIME OF EXAM: 04/16/2025 11:10 AM, LOCATION [facility] INDICATION: M25.511: Right shoulder pain, unspecified chronicity [...] DATE/TIME OF EXAM: 04/16/2025 11:10 AM, LOCATION [facility] INDICATION: M25.511: Right shoulder pain, unspecified chronicity ADDITIONAL CLINICAL INFORMATION: Ordering Provider Reason For Exam: fx COMPARISON: None. FINDINGS: There is no acute fracture or dislocation. There is mild degenerative change of the acromioclavicular and glenohumeral joints. There are 2suture anchors in the humeral head likely related to rotator cuff surgery. IMPRESSION: 1.Mild degenerative changes. The report was drafted by Danii Lakhani MD (president educational institution) 04/16/2025 11:25 AM. > Dictated by Customer Account Representative I, Gordo Diaz MD have personally reviewed and interpreted this examination/study. > Interpreting Provider: Gordo Diaz MD on 04/16/2025 11:47 AM Isaías Lan MD DIAGNOSTIC IMAGING ORDERABLES F inal Result from Last 3 Months Insurance [facility] MANAGED MEDICARE ADV Care Teams Production Consultant Relationship Specialty Start Date End Date Charu Macias MD [address] [place] [address] PCP - General 11/18/20
== END 2025-06-27 15:19 | disposition home or self-care (01) ==
PROVIDERS: PCP Family Medicine; Visit Provider Student in an Organized Health Care Education/Training Program
DX: M25.512 Pain in left shoulder (principal); M54.2 Cervicalgia
CPT/HCPCS: 72040; 73030